=== PATIENT | female | born 1970 | race Caucasian/White ===

== ENCOUNTER → 2020-06-25 07:34 | Outpatient (CLI) | payer OTHER, SELFPAY ==
--- NOTE | ~2020-06-25 | XR_ITS ---
EXAMINATION: XR hip BI 2V w AP pelvis DATE: 06/25/2020 08:15 INDICATION: Rheumatoid arthritis involving multiple sites TECHNIQUE: AP view of the pelvis and two views of each hip were obtained. COMPARISON: None. FINDINGS: Bone alignment is normal. There is no fracture. No abnormal erosions are identified. There is mild osteoarthritis of the hips. Phleboliths are noted in the pelvis. The soft tissues are otherwi se unremarkable. IMPRESSION: 1. Mild osteoarthritis. Reviewed, dictated and finalized at location A. OL PRINCIPAL IMPRESSION: 1. Mild osteoarthritis.
--- NOTE | ~2020-06-25 | XR_ITS ---
EXAMINATION: XR chest 2V DATE: 06/25/2020 08:15 INDICATION: Rheumatoid arthritis TECHNIQUE: Frontal and lateral views of the chest are obtained COMPARISON: 11/21/2016 FINDINGS: The lungs are free of acute opacities. There is no pleural effusion or pneumothorax. The ca rdiomediastinal silhouette is normal. There is mild thoracic spondylosis. Surgical changes are noted in the lower cervical spine. IMPRESSION: 1. No acute cardiopulmonary abnormality. Reviewed, dictated and finalized at location A. T BOAT OPERATOR
--- NOTE | ~2020-06-25 | XR_ITS ---
XR knee RT 2V, XR knee LT 2V 06/25/2020 08:15 INDICATION: Knee pain PROCEDURE: 2 views each knee COMPARISON: No prior studies for comparison. FINDINGS: Fracture, dislocation or subluxation is not identified. No significant joint effusion. No j oint space narrowing. The soft tissues appear within normal limits. No foreign bodies are identified . IMPRESSION: 1: NO ACUTE BONE OR JOINT ABNORMALITY IDENTIFIED. Reviewed, dictated and finalized at location A. DATA HADOOP DEVELOPER IMPRESSION: 1: NO ACUTE BONE OR JOINT ABNORMALITY IDENTIFIED.
== END ==
PROVIDERS: PCP Family Medicine; Visit Provider Internal Medicine Rheumatology
DX: M05.79 Rheumatoid arthritis with rheumatoid factor of multiple sites without organ or systems involvement (principal); M25.559 Pain in unspecified hip; Z79.899 Other long term (current) drug therapy; M70.61 Trochanteric bursitis, right hip; M16.0 Bilateral primary osteoarthritis of hip
CPT/HCPCS: 71046; 73521; 73560

== ENCOUNTER 2021-03-27 19:42 | Emergency (ER) | payer OTHER, SELFPAY ==
--- NOTE | ~2021-03-27 | XR_ITS ---
EXAMINATION: XR foot RT min 3V DATE: 03/27/2021 21:25 INDICATION: Right foot injury and pain. TECHNIQUE: 4 views of right foot were obtained. COMPARISON: None. FINDINGS: Bone alignment is normal. There are chip fractures at first tarsometatarsal joint. Joint sp aces are normal. There are enthesophytes at the posterior and plantar aspects of calcaneal tuberosity . IMPRESSION: 1. Chip fractures at first tarsometatarsal joint. Reviewed, dictated and finalized at location A.
[2021-03-27 19:59] VITALS: BP 135/85; PULSE 84; RESP 16; TEMP 35.9; O2SAT 100
--- NOTE | 2021-03-27 21:12 | ED.LOWEXIN ---
HPI - Extremity Injury (Lower) General Chief Complaint: Extremity Injury, Lower Stated Complaint: Right foot injury Time Seen by Provider: 03/27/21 21:02 History of Present Illness HPI Narrative: Right foot injury while mowing the law about 3 hours ago. Unsure of the exact mechanism of injury. She fell and afterward she had pain in the right foot and was not able to bear weight. No additional injury. Related Data Home Medications Medication Instructions Recorded Confirmed etanercept 50 mg/mL (1 mL) 50 mg SUB-Q WEEKLY 04/17/20 06/19/20 subcutaneous syringe folic acid 1 mg tablet 2 mg PO DAILY tablet 04/17/20 06/19/20 hydroxychloroquine 200 mg tablet 200 mg PO DAILY 04/17/20 06/19/20 lamotrigine 100 mg tablet 100 mg PO BID 04/17/20 06/19/20 leflunomide 10 mg tablet 10 mg PO DAILY 04/17/20 06/19/20 methotrexate sodium 2.5 mg tablet 10 mg PO WEEKLY tablet 04/17/20 06/19/20 duloxetine 60 mg capsule,delayed 60 mg PO DAILY 12/18/20 release Allergies Allergy/AdvReac Type Severity Reaction Status Date / Time No Known Allergies Allergy Unverified 11/29/14 16:23 Review of Systems Review of Systems: All systems reviewed & are unremarkable except as noted in HPI and below Constitutional: Constitutional: Denies fever(s) and Denies weakness Cardiovascular: Cardiovascular: Denies chest pain Respiratory: Respiratory: Denies dyspnea Musculoskeletal: Musculoskeletal: Denies back pain Neurologic: Denies dizziness and Denies weakness PMFSH Past Medical History Medical History Chronic depression Migraine headache Nicotine vapor product user Rheumatoid arthritis of multiple sites without organ or system involvement with positive rheumatoid factor Sore throat Surgical History Surgical History History of neck surgery (~2018) Social History Social History Smoking status: Former smoker ( the patient smoked for 35 years and quit in 2019. She is vaping.) Tobacco type: e-cigarettes/vaping Second hand tobacco smoke exposure: No Alcohol intake: never Substance use: never Exam Const: General: healthy appearing, no acute distress and alert Orientation/consciousness: patient oriented x3 HENMT: Head: normal to inspection Resp: Effort & Inspection: normal respiratory effort Cardio: Other: 2+ right DP and PT Skin: General skin exam: normal color Wounds: no wounds Neuro: General: patient oriented x3 and moves all extremities Speech: normal speech Other: sensation intact Extrem: Other: minimal swelling to dorsum of right foot. Psych: Appearance: well kempt Mental Status: mental status grossly normal Affect: normal affect Course Vital Signs Vital signs: Vital Signs Temperature 35.9 C L 03/27/21 19:59 Pulse Rate 84 03/27/21 19:59 Respiratory Rate 16 03/27/21 19:59 Blood Pressure 135/85 03/27/21 19:59 Pulse Oximetry 100 03/27/21 19:59 Temperature 35.9 C L 03/27/21 19:59 Pulse Rate 84 03/27/21 19:59 Respiratory Rate 16 03/27/21 19:59 Blood Pressure 135/85 03/27/21 19:59 Pulse Oximetry 100 03/27/21 19:59 MDM - Extremity Injury (Lower) MDM Narrative Medical decision making narrative: Small chip fractures at tarsometatarsal joint. Differential Diagnosis Differential diagnosis: Likely other (foot sprain/fracture) Medical Records Attestation: I reviewed the patient's medical records. Imaging Data Radiologist's impression: ITS Impressions Foot X-Ray 03/27/21 21:32 IMPRESSION: 1. Chip fractures at first tarsometatarsal joint. Discharge Plan Discharge Clinical Impression: Fracture of metatarsal bone of right foot Qualifiers: Encounter type: initial encounter Metatarsal bone: first Fracture type: closed Fracture alignment: nondisplaced Qualified Code(s): S92.314A - Nondisp
[2021-03-27] MEDS: IBUPROFEN 600 MG TABLET PO (21:25)
[2021-03-27] MEDS: HYDROcodone/acetaminophen (*CRX) 5-325 MG TABLET 1 TAB PO (22:25)
[2021-03-27 22:50] VITALS: BP 130/89; PULSE 82; RESP 14; O2SAT 100
== END 2021-03-27 22:51 | disposition home or self-care (01) ==
PROVIDERS: Emergency Provider Emergency Medicine; PCP Family Medicine
DX: S92.314A Nondisplaced fracture of first metatarsal bone, right foot, initial encounter for closed fracture (principal); M06.9 Rheumatoid arthritis, unspecified; F17.290 Nicotine dependence, other tobacco product, uncomplicated; W18.30XA Fall on same level, unspecified, initial encounter
CPT/HCPCS: 73630; 99284; A9270

== ENCOUNTER 2021-04-02 14:36 | Outpatient (CLI) | payer OTHER, SELFPAY ==
--- NOTE | ~2021-04-02 | CT_ITS ---
EXAMINATION: CT foot RT wo con DATE: 04/02/2021 15:37 INDICATION: Fracture of unspecified metatarsal bone at the right foot with diffuse fluid swelling and bruising TECHNIQUE: High resolution computed tomography (CT) of the right foot was performed without intraveno us contrast. Additional sagittal and coronal reconstructions were performed. Automated exposure contr ol and iterative reconstruction technique were employed. The dose-length product was 405.46 mGy-cm. COMPARISON: Right foot radiographs dated 03/27/2021 FINDINGS: Nondisplaced intra-articular fracture involving the dorsal aspect of the distal aspect of the medial cuneiform. Comminuted intra-articular fracture at the base of the first metatarsal with tiny nondispl aced fractures along the dorsal and medial rim of the articular surface and with additional nondispla marianela oblique fracture extending across the palmar aspect of the base of the first metatarsal. Finally there is a minimally displaced intra-articular fracture of the involving the plantar aspect of the ba se of the fourth metatarsal. No other fractures identified. Joint spaces are relatively preserved. Mi ld soft tissue swelling over the dorsal aspect of the midfoot. Small Achilles calcaneal and moderate- sized plantar calcaneal spurs. IMPRESSION: 1. Non to minimally displaced intra-articular fractures involving the medial cuneiform and base of th e first and fourth metatarsals. Reviewed, dictated and finalized at location A. IMPRESSION: 1. Non to minimally displaced intra-articular fractures involving the medial cu neiform and base of the first and fourth metatarsals.
== END 2021-04-02 14:37 | disposition home or self-care (01) ==
LOC: ANHIMG 14:41
PROVIDERS: PCP Family Medicine; Visit Provider Orthopaedic Surgery
DX: S92.341A Displaced fracture of fourth metatarsal bone, right foot, initial encounter for closed fracture (principal); S92.351A Displaced fracture of fifth metatarsal bone, right foot, initial encounter for closed fracture
CPT/HCPCS: 73700

== ENCOUNTER 2021-06-30 16:00 | Outpatient (RCR) | payer OTHER, SELFPAY ==
--- NOTE | 2021-06-02 09:33 | PTOPEVAL ---
PHYSICAL THERAPY EVALUATION 06-02-21 Thank you for referring Daisha Escobar to [facility] [place] [facility] [place] She is scheduled to be seen for therapy? 1 x/week for 4 weeks. Please review, sign, date and return this plan of care RUSTY. I agree with and certify that the following plan of care is medically necessary. Referring Physician Date Attending Provider: Rodríguez Brewer MD *PT Outpatient Evaluation Start: 06/02/21 08:07 Outpatient Past Medical History Past Medical History Source of Past Medical History Patient Neurological History Hx Neurological Disorders No Significant History Cardiovascular History Hx Cardiac Disorders No Significant History Respiratory History Hx Respiratory Disorders No Significant History Gastrointestinal History Hx Gastrointestinal Disorders No Significant History Genitourinary History Hx Genitourinary Disorders No Significant History Musculoskeletal History Hx Arthritis Yes: RA- feet,wrists, hands; Hx Orthopedic Surgery Yes: cervical discectomy & fusion Hematological History Hx Hematological Disorders No Significant History Endocrine History Hx Endocrine Disorders No Significant History HEENT History Hx HEENT Disorders No Significant History Evaluation Information Problem Diagnosis R metatarsal fracture Onset March 31, 2021 Subjective Information injury to her foot when Query Text:As Reported By Patient/ working in the yard and trying Family to break a branch by pushing it with her foot, fell and twisted her foot backwards; non surgical foot fracture R foot non displaced, immobilized with walking/cast shoe; for one week, no pressure/ WB, used walker/scooter for about 1 month; then crutches and now cane; intermittent use of cane for past 2-3 weeks Prior Level of Function Activity Level (Last 3 Months) 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
--- NOTE | 2021-06-30 16:17 | PTOPEVAL ---
PHYSICAL THERAPY DISCHARGE REPORT 06-30-21 Refer to the clinical summary below, for her status today, compared to the initial evaluation. Thank you for referring Daisha Escobar to [facility] Please review, sign, date and return Discharge report RUSTY. I agree with and certify that the following plan of care is medically necessary. Referring Physician Date Attending Provider: Rodríguez Brewer MD Document 06/30/21 15:55 AIDE (Rec: 06/30/21 16:17 AIDE [id number]) Assessment Status Discharge Subjective Information Connie reports: therapy has Query Text:As Reported By Patient/ been good, exercises helped; Family have a good pair of shoes; Pain Assessment Timing of Pain Assessment Timing of Pain Assessment Assessment Pain Scale Pain Scale Used Numeric (1 - 10) Self Report Pain Assessment Right Foot/Feet Reported Pain Level 3 Pain Description Soreness,Tender on Palpation Pain Frequency Chronic,Continuous Other Pain Description ball of foot; top of foot sometimes feels hot Lowest Pain Intensity 2 Greatest Pain Intensity 5 Other Pain Aggravating Factors at end of day- walking on concrete all day at work; Pain Score Pain Score 3: Self Report Interventions Used Interventions Used By Clinicians Education Pain Relief Interventions Used By Ice,Inactivity/Rest Patient Other Alleviating Interventions have not needed ice lately; in shoe supports and good supportive shoes Lower Extremity Muscle Strength Testing General Lower Extremity Strength Gross Lower Extremity Strength functional strength, with shoe on: R ankle: -single leg standing 32 seconds - single leg PF x 10 reps, unsteady with last few reps -with heel on ground: DF ankle x 30 reps - with foot flat on ground, toe extension x 30 reps Gait Assessment Gait Assessment Additional Ambulation Comments ambulated indep without assistive device and good gait pattern and speed; Rehab Teaching Rehab Teaching Teaching Topic Rehab Teaching Topic Components Home Program As Pertains To Plan of Care Discussion Recipient Patient Learning Preferences Audio,Discussion,One-on-One Instruction,Written Barriers to Learning None Readiness
== END 2021-07-01 11:50 | disposition home or self-care (01) ==
LOC: ANHPT 16:00
PROVIDERS: PCP Family Medicine; Visit Provider Orthopaedic Surgery
DX: S92.301D Fracture of unspecified metatarsal bone(s), right foot, subsequent encounter for fracture with routine healing (principal)
CPT/HCPCS: 97110; 97140; 97161

== ENCOUNTER 2022-06-10 09:47 | Emergency (ER) | payer OTHER, SELFPAY ==
[2022-06-10 10:01] VITALS: BP 133/88; PULSE 93; RESP 16; TEMP 37.4; O2SAT 100
--- NOTE | 2022-06-10 10:06 | ED.URI ---
HPI - URI/Sore Throat General Chief Complaint: Upper Respiratory Infection Stated Complaint: sore throat, congestion, rt ear pain Time Seen by Provider: 06/10/22 10:06 Source: patient and RN notes reviewed Mode of arrival: ambulatory Limitations: no limitations History of Present Illness HPI Narrative: 51-year-old female presenting for complaint of right ear pain, sinus congestion, hoarse voice for 4 days. Fever at onset. She is taking Mucinex for symptoms. She denies tinnitus, dizziness, shortness of breath, wheezing, nausea, vomiting, diarrhea, fevers or chills. Related Data Home Medications Medication Instructions Recorded Confirmed etanercept 50 mg/mL (1 mL) 50 mg subcut WEEKLY 04/17/20 06/10/22 subcutaneous syringe (Enbrel) folic acid 1 mg tablet 2 mg PO DAILY 04/17/20 06/10/22 hydroxychloroquine 200 mg tablet 200 mg PO DAILY 04/17/20 06/10/22 lamotrigine 100 mg tablet 100 mg PO BID 04/17/20 06/10/22 leflunomide 10 mg tablet 10 mg PO DAILY 04/17/20 06/10/22 methotrexate sodium 2.5 mg tablet 10 mg PO WEEKLY 04/17/20 06/10/22 duloxetine 60 mg capsule,delayed 60 mg PO DAILY 12/18/20 06/10/22 release Allergies Allergy/AdvReac Type Severity Reaction Status Date / Time No Known Allergies Allergy Verified 06/10/22 10:06 Review of Systems Review of Systems: CONSTITUTIONAL: Denies malaise, chills, sweats, fever EYES: Denies visual changes, redness, or discharge ENT: Reports rhinorrhea, congestion,otalgia CARDIOVASCULAR: Denies chest pain, palpitations, edema RESPIRATORY: Reports cough, post nasal drainage. Denies dyspnea GASTROINTESTINAL: Denies abdominal pain, nausea, vomiting, diarrhea SKIN: Denies rash or itching MUSCULOSKELETAL: Denies myalgia NEUROLOGIC: Denies headache PMFSH Past Medical History Medical History Chronic depression Fracture of metatarsal of right foot, closed first, third and fourth bases - nondisplaced Fracture of tarsal bone of right foot medial cuneiform Migraine headache Nicotine vapor product user Rheumatoid arthritis of multiple sites without organ or system involvement with positive rheumatoid factor Sore throat Surgical History Surgical History History of neck surgery (~2018) Social History Social History Smoking status: Former smoker ( the patient smoked for 35 years and quit in 2019. She is vaping.) Tobacco type: e-cigarettes/vaping Second hand tobacco smoke exposure: No Alcohol intake: never Substance use: never Additional occupation/education comments: [employer], teacher Gender identity (if verbalized by the patient): Female Exam Narrative: GENERAL: Ill-appearing, nontoxic EYES: PERRLA, conjunctivae clear ENT: Mucous membranes moist. Right TM red and bulging, tender and red canal; Left TM pearly ross with normal light reflex; no tragal tenderness. Hoarse voice. Oropharynx erythematous without lesions or exudate. CHEST: Clear to auscultation, breath sounds equal. HEART: Regular rate and rhythm. No murmur heard. SKIN: Warm, dry, no rash. NEURO: Alert and oriented x3. PSYCH: Normal mood and affect Course Course Emergency Course: Patient is aware of diagnosis, understands and agrees to treatment plan. Anticipatory guidance given. Patient agrees to follow-up as directed and is aware of reasons to seek care at the emergency department. Portions of this record may have been created with voice recognition software Level of Care: Express Care Visit Vital Signs Vital signs: Vital Signs Temperature 99.3 F 06/10/22 10:01 Pulse Rate 93 06/10/22 10:01 Respiratory Rate 16 06/10/22 10:01 Blood Pressure 133/88 06/10/22 10:01 Pulse Oximetry 100 06/10/22 10:01 Temperature 99.3 F 06/10/22 10:01 Pulse Rate 93 06/10/22 10:01 Respiratory Rate 16 05/23
== END 2022-06-10 10:15 | disposition home or self-care (01) ==
PROVIDERS: Emergency Provider Nurse Practitioner Family; PCP Family Medicine
DX: H66.001 Acute suppurative otitis media without spontaneous rupture of ear drum, right ear (principal); F17.290 Nicotine dependence, other tobacco product, uncomplicated; M05.9 Rheumatoid arthritis with rheumatoid factor, unspecified; F32.A Depression, unspecified
CPT/HCPCS: 99213; G0463

== ENCOUNTER → 2022-08-21 09:43 | Outpatient (CLI) | payer OTHER, SELFPAY ==
--- NOTE | ~2022-08-21 | XR_ITS ---
EXAMINATION: XR chest 2V DATE: 08/21/2022 09:58 INDICATION: Rheumatoid arthritis TECHNIQUE: AP and lateral views of the chest are obtained. COMPARISON: 06/25/2020 FINDINGS: The lungs are free of acute opacities. No pleural effusion or pneumothorax. The cardiomedia stinal silhouette is normal. There is moderate thoracic spondylosis. There are changes of anterior fu nory at the cervicothoracic junction. IMPRESSION: 1. No acute cardiopulmonary abnormality. Reviewed, dictated and finalized at location B. DYEING MACHINE OPERATOR
== END ==
PROVIDERS: PCP Family Medicine; Visit Provider Internal Medicine Rheumatology
DX: M05.79 Rheumatoid arthritis with rheumatoid factor of multiple sites without organ or systems involvement (principal); Z79.899 Other long term (current) drug therapy; Z11.1 Encounter for screening for respiratory tuberculosis; Z51.81 Encounter for therapeutic drug level monitoring
CPT/HCPCS: 71046

== ENCOUNTER → 2023-05-21 14:03 | Outpatient (CLI) | payer OTHER, SELFPAY ==
--- NOTE | ~2023-05-21 | XR_ITS ---
EXAMINATION: XR foot RT min 3V DATE: 05/21/2023 14:16 INDICATION: Right foot pain, palpable lump near the first tarsometatarsal joint TECHNIQUE: Dorsoplantar, lateral, and 2 oblique views of the right foot were obtained. COMPARISON: 03/27/2021 FINDINGS: There is a chronic healed fracture at the first tarsometatarsal joint. No acute fracture is identified. There is mild osteoarthritis of multiple interphalangeal joints. The soft tissues are un remarkable. Posterior and plantar calcaneal enthesophytes are noted. IMPRESSION: 1. No acute osseous abnormality. Reviewed, dictated and finalized at location F.
== END ==
PROVIDERS: PCP Family Medicine; Visit Provider Nurse Practitioner Family
DX: M79.671 Pain in right foot (principal); R22.41 Localized swelling, mass and lump, right lower limb
CPT/HCPCS: 73630

== ENCOUNTER 2023-11-09 12:07 | Outpatient (CLI) | payer OTHER, SELFPAY ==
--- NOTE | ~2023-11-09 | XR_ITS ---
Right Hand Technique: PA and lateral views were obtained. Clinical History: Rheumatoid arthritis Findings: No acute fracture or dislocation is seen. Osseous alignment is anatomic. Joint spaces are p reserved. Soft tissues are unremarkable. Impression: Unremarkable right hand. Reviewed, dictated and finalized at location M. Impression: Unremarkable right hand.
--- NOTE | ~2023-11-09 | XR_ITS ---
XR foot RT 2V DATE: 11/09/2023 13:38 INDICATION: Rheumatoid arthritis TECHNIQUE: AP and lateral views COMPARISON: 05/21/2023 right foot FINDINGS: Mild plantar and posterior calcaneal enthesopathy. No associated erosive change or periosti tis. No fracture or dislocation, periosteal reaction or bone destruction or erosive change is noted. IMPRESSION: Mild plantar and posterior calcaneal enthesopathy Reviewed, dictated and finalized at location L.
--- NOTE | ~2023-11-09 | XR_ITS ---
Clinical Indication: Rheumatoid arthritis PA and lateral views of the chest: Comparison: 08/21/2022 Findings: The lungs are clear, without evidence of focal consolidation or pleural effusion. Cardiome diastinal silhouette is within normal limits. Bones and soft tissues are unremarkable. Impression: Normal chest. Reviewed, dictated and finalized at location . Impression: Normal chest.
--- NOTE | ~2023-11-09 | XR_ITS ---
Left Hand Technique: PA and lateral views were obtained. Clinical History: Rheumatoid arthritis Findings: No acute fracture or dislocation is seen. Osseous alignment is anatomic. Joint spaces are p reserved. Soft tissues are unremarkable. Impression: Unremarkable left hand. Reviewed, dictated and finalized at location M. Impression: Unremarkable left hand.
--- NOTE | ~2023-11-09 | XR_ITS ---
Left Shoulder Technique: AP and scapular Y views were obtained. Clinical History: Rheumatoid arthritis Findings: No fracture or dislocation is seen. Osseous alignment is anatomic. The glenohumeral and acr omioclavicular joint spaces are preserved. Soft tissues are unremarkable. Impression: Unremarkable left shoulder radiographs. Reviewed, dictated and finalized at location . Impression: Unremarkable left shoulder radiographs.
== END 2023-11-09 12:08 ==
PROVIDERS: PCP Family Medicine; Visit Provider Internal Medicine Rheumatology
DX: M77.31 Calcaneal spur, right foot (principal); M05.79 Rheumatoid arthritis with rheumatoid factor of multiple sites without organ or systems involvement; Z79.899 Other long term (current) drug therapy; Z51.81 Encounter for therapeutic drug level monitoring
CPT/HCPCS: 71046; 73030; 73120; 73620

== ENCOUNTER 2024-01-28 01:08 | Day surgery (SDC) | payer OTHER, SELFPAY ==
[2024-01-19 16:10] VITALS: BMI 26.7
--- NOTE | 2024-01-19 16:49 | PC.NURSE ---
Report to the Outpatient Waiting Room, entrance under the green pavilion located off [facility], at 0600 on 01-28-24. Planned Procedure Time: 0730. Time changes happen often and if your time is changed the preop area will call you the afternoon before. - You and your visitor will be asked to self-screen and do not enter if you have any COVID symptoms. - A mask is optional within the hospital at this time. Patients may have clear liquids (water, carbonated beverages, clear teas, apple juice) until 3 hours prior to surgery with a maximum of 20 ounces. 0430 - No food from midnight until time of surgery - Infants may have breast milk until 4 hours before surgery, formula 6 hours prior to surgery. - Children will be allowed to drink immediately following surgery. If applicable, please bring a bottle or sippy cup to assist with drinking. Juice, water, soda, and popsicles are readily available. For infants on formula, please bring formula the day of surgery. Pacifiers are allowed. Take the following medications with a SIP of water the morning of surgery: duloxetine, lamotrigine DO NOT STOP ANY OF YOUR OTHER PRESCRIPTION MEDICATIONS PRIOR TO SURGERY ?EXCEPT THE FOLLOWING Medications to discontinue per physician: vitamins and supplements Date to take last dose: 01-25-24 Please no make-up, nail arabic, hairspray, perfume, deodorant, or body powder the day of surgery. No jewelry (including any body piercings) or valuables the day of surgery, leave them at home. Please take a shower or bath the night before, or the morning of, surgery with an antibacterial soap. Wear comfortable, loose fitting clothing. Children are encouraged to wear pajamas. - Jewelry must be removed prior to entering the operating room. Rings and piercings that are not removed may be cut off. - The hospital will not accept responsibility for valuables. - Please leave all valuables, including medications, at home the day of surgery. If you are going home after surgery, a licensed tractor trailer moving van driver must drive you home. - NO public transportation without another adult if you receive anesthesia. - We recommend that an adult stay with you for 24 hours following discharge. - We also recommend that you do not drive, make important decision, drink alcoholic beverages, or take any drugs that were not prescribed by your health care provider for at least 24 hours after your discharge time. For Pediatric surgeries, we recommend two adults accompany the child home. Follow any additional instructions given to you from your surgeon. If you or anyone in your household have experienced Covid symptoms in the past week, please notify your surgeon or the nurse liaison at the phone number below for possible testing. Telephone instructions given to Connie Escobar and asked if any additional questions and then verbalized understanding. Patient advised to call surgeon office or pre surgery nurse liaison [phone] if any additional questions.
[2024-01-28] VITALS (9 sets, daily range): BP systolic 136–163; BP diastolic 73–92; PULSE 65–81; RESP 12–17; TEMP 36.1–36.7; O2SAT 96–100
--- NOTE | ~2024-01-28 | XR_ITS ---
EXAMINATION: XR surgery orthopedic DATE: 01/28/2024 08:18 INDICATION: Right foot arthritis. TECHNIQUE: 2 intraoperative fluoroscopic views of right foot were obtained. I was not present. Fluoro scopy exposure time was 7 seconds. COMPARISON: Right foot radiographs 11/09/2023 FINDINGS: There are changes of arthrodesis procedure of first tarsometatarsal joint with a staple. IMPRESSION: 1. Arthrodesis of first tarsometatarsal joint. Reviewed, dictated and finalized at location A.
--- NOTE | 2024-01-28 07:10 | WPDHPUPDATE1 ---
History and Physical Update Update Date/Time: 01/28/24 07:10 History and Physical has been reviewed, including an updated exam of the patient. There are NO changes in the patient's condition. Risks, benefits, and alternatives have been discussed and questions answered. Patient agrees to proceed with procedure.
--- NOTE | 2024-01-28 07:19 | WPDANESEPPF ---
Anes - Initial Pre Proc Eval Procedure: Operation Date: 01/28/24 07:30 Proposed Procedures p Arthrodesis of First Metatarsal Cuneiform Joint Right Foot - Bebeto Cash Jr., DPM Date/Time: 01/28/24 07:19 Surgeon: Bebeto Cash Jr., DPM Pre Op Diagnosis: Arthritis Rt Foot Patient Data Age: 53 Gender: F Height: 1.63 m Weight: 70.1 kg Last Vital Signs Temp 36.7 C 01/28/24 06:09 Pulse 80 01/28/24 06:09 Resp 16 01/28/24 06:09 BP 142/89 H 01/28/24 06:09 Pulse Ox 100 01/28/24 06:09 O2 Del Method Room Air 01/28/24 06:09 Allergies Allergy/AdvReac Type Severity Reaction Status Date / Time No Known Allergies Allergy Verified 01/28/24 06:14 Home Medications Medication Instructions Recorded Confirmed Type etanercept 50 mg/mL (1 mL) 50 mg subcut WEEKLY 04/17/20 01/28/24 History subcutaneous syringe (Enbrel) folic acid 1 mg tablet 2 mg PO DAILY 04/17/20 01/28/24 History lamotrigine 100 mg tablet 100 mg PO BID 04/17/20 01/28/24 History leflunomide 10 mg tablet 10 mg PO DAILY 04/17/20 01/28/24 History methotrexate sodium 2.5 mg tablet 10 mg PO WEEKLY 04/17/20 01/28/24 History duloxetine 60 mg capsule,delayed 60 mg PO DAILY 12/18/20 01/28/24 History release valacyclovir 1 gram tablet 1,000 mg PO .COMPLEX PRN cold sores 01/19/24 01/28/24 History (Valtrex) Patient hx anesthesia problems: none Family hx anesthesia problems: none Results Review: All pre-operative results and documents have been reviewed as part of the pre-operative evaluation. [facility] Past Medical History Medical History BMI 28.0-28.9,adult Breast cancer screening by mammogram Bullous myringitis of right ear Chronic depression Colon cancer screening COVID (07/14/22) De Quervain's disease (tenosynovitis) (~08/2023) left wrist. X-ray of the left hand on 10/30/2023 reveals no bony defect of the distal radius or ulna. Fever blister (~09/14/22) Fracture of metatarsal of right foot, closed first, third and fourth bases - nondisplaced Fracture of tarsal bone of right foot medial cuneiform Low back pain Mass of right foot Migraine headache Nicotine vapor product user Overweight (BMI 25.0-29.9) Pharyngitis Rheumatoid arthritis of multiple sites without organ or system involvement with positive rheumatoid factor Right foot pain Sore throat Surgical History Surgical History History of neck surgery (~2018) Social History Social History Smoking packs per day: 0.5 Smoking cigarettes per day: 10.0 Years smoked: 35 Smoking pack-years: 17.50 Smoking status: Former smoker Tobacco type: cigarettes and e-cigarettes/vaping Second hand tobacco smoke exposure: No Smoking end date: 08/23/20 Additional smoking assessment comments: still vapes daily with nicotine Alcohol intake: current Alcohol use details: socially Substance use: never Substance use type: does not use Do You Feel Safe in your Home?: Yes Lack of Transportation: No Lack of Food: Sometimes True Current Housing: I Have Housing Concerned About Future Housing: No Difficulty Paying Gas/Electric Bills: No Difficulty Paying for Meds: No Currently Unemployed: No Education: Master's Degree or Higher Difficulty w/ Childcare or Family Care: No Living arrangements: alone Occupation/Education: occupation Additional occupation/education comments: [employer], teacher Gender identity (if verbalized by the patient): Female Spiritual care concerns: No Anes - Eval Final PreProcedure Day of Procedure 01/28/24 07:19 Patient weight: overweight Heart: regular rate and rhythm Lungs: clear to auscultation Airway: Mallampati scale class II Neurological: alert and oriented Last oral intake: >/= 8 hours ASA classification: III Emergent: n
[2024-01-28] MEDS: LACTATED RINGERS 1,000 ML 30 ML IV CONT ×2 (07:26→08:54)
[2024-01-28] MEDS: ceFAZolin 2 GM/D5W 50 ML 2 GM/50 ML BAG IVPB (07:28)
[2024-01-28] MEDS: BUPivacaine HCL 0.5% 10 ML AMP INFILTRATE (07:52)
[2024-01-28] MEDS: LIDOCAINE HCL 2% LOCAL INJ 20 ML VIAL 10 ML INFILTRATE (07:52)
--- NOTE | 2024-01-28 08:37 | W.PM.PROC2 ---
Procedure Note - Detailed Date of Procedure 01/28/24 Pre-op Diagnosis Arthritis Right Foot First Metatarsal Cuneiform Joint Post-op Diagnosis Same Procedure Performed Arthrodesis of the first metatarsal cuneiform joint right foot Surgeon Bebeto Cash Jr., DPM Anesthesia General and Local Indications Painful 1st metatarsal cuneiform joint right foot with a large osteophyte Findings Large dorsal osteophyte with loss of joint space to the first metatarsal cuneiform joint right foot Description of Procedure Procedure in detail: Under mild sedation the Patient was brought into the operating room and placed on the operating table in the supine position. pneumatic ankle tourniquet was placed about the patient's right ankle. Following general anesthesia I performed a common peroneal nerve block along with an ankle ring block utilizing 20cc of 2% Lidocaine plain and 0.5% Marcaine plain. An Esmarch bandage is not used to exsanguinate the patient's right foot and ankle and a pneumatic ankle tourniquet was inflated to 250 mmHg. Attention was directed to the dorsal aspect of the right foot dorsal to the first metatarsal cuneiform joint where a large osteophyte was noted. The linear incision was made starting along the distal medial cuneiform and exteding to the central shaft of the first metatarsal. The incision was made medial to the Extensor hallucis Longus tendon. All bleeders were ligated and cauterized as necessary. The dorsal medial aspect of the first metatarsal cuneiform joint was incised and soft tissue retracted medially and laterally. I used two 2mm Steinmann pins to drill proximal and distal to the joint, then a joint distractor was used to open the joint and allow visualization. Osteophytes were resected with a sagittal saw blade and rongeur. There was loss and denudation of the cartilage already noticed, this was consistent with arthrosis of the joint. I used a curette and cartilage debridement tool provided in the [facility] joint preperation kit to remove the degenerative cartilage. Next, I drilled the subchondral bone with a 2.0mm drill bit. I flushed the cartilage and subchondral bone from the operative site with copius amount of sterile saline. I further fenestrated the joint with a small osteotome and mallet. Next, I implanted an Arthrex 15mm by 18mm MX staple utilizing standard principles and techniques to fixate the fusion site Excellent compression was noted along with positioning with live fluroscopy. I flushed the wound with sterile saline and repaired the capsule with 3-0 Vicryl with a simple interrupted suture technique. Next, I used 4.0 Vicryl to reapproximate the subcutaneus layer and 4.0 Monocryl in running subcuticular fashion technique to close the skin. Upon completion of the procedure I dressed the incision with 1/4 inch steri strips, Adaptic, 4x4 Gauze, 4 inch Kerlix and Coban. I deflated the ankle tourniquet and there was an immediate capillary refill noted to all digits of the foot. No bleeding was noticed through the dressing. I applied a posterior splint with the foot held 90 degrees to the leg. The patient did very well with the procedure and the anesthesia. The patient was transferred to the recovery room with vital signs stable and vascular status intact to all toes of the foot. Following a period of postoperative monitoring, the patient will be discharged home on the following written and oral postoperative instructions: 1. The patient should keep the dressing clean, dry, and intact. Use a cast protector bag with showers. 2. The patient will be strictly nonweightbearing with a knee scooter. 3. Patient should ice and elevate the right foot when at rest. 4. The patient is to contact Dr. Cash for all postop care and if any problems arise. 5. Prescriptions were written for Percocet 5/325 dispensed 40 to be taken 1 p.o. q.4-6 hours as needed for severe pain. Furthermore, Xarelto 10 mg was also prescribed to be taken
[2024-01-28] MEDS: fentaNYL CITRATE INJ (*CRX) 100 MCG/2 ML VIAL 25 MCG IV PUSH ×4 (08:56→09:16)
[2024-01-28] MEDS: oxyCODONE HCL (*CRX) 5 MG TAB IR PO (09:47)
== END 2024-01-28 10:50 | disposition home or self-care (01) ==
PROVIDERS: PCP Family Medicine; Visit Provider Podiatrist Foot & Ankle Surgery
PROC: (CPT 28750; principal; 2024-01-28 07:30)
DX: M19.071 Primary osteoarthritis, right ankle and foot (principal); M05.79 Rheumatoid arthritis with rheumatoid factor of multiple sites without organ or systems involvement; F32.A Depression, unspecified; F17.290 Nicotine dependence, other tobacco product, uncomplicated
CPT/HCPCS: 28740; 99199; A9270; J0690; J1100; J2250; J2405; J2704; J3010; J7120

== ENCOUNTER 2024-10-18 11:34 | Outpatient (CLI) | payer OTHER, SELFPAY ==
--- NOTE | ~2024-10-18 | XR_ITS ---
EXAMINATION: XR shoulder RT min 2V DATE: 10/18/2024 11:46 INDICATION: Right shoulder pain. TECHNIQUE: 4 views of right shoulder were obtained. COMPARISON: None. FINDINGS: Alignment is normal. No fracture. There is mild osteoarthritis of glenohumeral joint and mo derate osteoarthritis of acromioclavicular joint. There are changes of anterior fusion procedure in c ervical spine. IMPRESSION: 1. Polyarticular osteoarthritis. Reviewed, dictated and finalized at location A. HOUSE ENGINEER
== END 2024-10-18 11:35 | disposition home or self-care (01) ==
LOC: MICIMG 11:35
PROVIDERS: PCP Family Medicine; Visit Provider Family Medicine
DX: M19.011 Primary osteoarthritis, right shoulder (principal); G89.29 Other chronic pain
CPT/HCPCS: 73030

== ENCOUNTER 2025-01-25 14:19 | Outpatient (CLI) | payer OTHER, SELFPAY ==
--- NOTE | ~2025-01-25 | MR_ITS ---
MRI of the right shoulder Technique: Axial proton-density fat-sat images, coronal proton density fat-sat and T2 fat-sat images, and sagittal T1-weighted and T2 fat-sat images were acquired. Clinical History: Bicipital tendinitis Findings: There is mild AC joint degenerative change., Coracoclavicular and coracohumeral ligaments a ppear intact. Possible tear of the coracoacromial ligament. There is full-thickness tearing of the anterior aspect of the distal supraspinatus tendon, with the a miugel angel of tear measuring 1.7 x 1.7 cm in extent. There is moderate infraspinatus tendinosis. Subscapular is tendon is intact with moderate to severe tendinosis. Tendon of long head of the biceps is intact. No definite labral tear seen. Inferior glenohumeral ligament is intact. There is glenohumeral joint effusion, with fluid passing th rough the rotator cuff defect into the subacromial/subdeltoid bursa. No degenerative change of the gl enohumeral joint. No muscle atrophy or edema. Impression: Full-thickness tear of the anterior and mid portions of the distal supraspinatus tendon, as detailed above. Background rotator cuff tendinosis. Suspected tear of the coracoacromial ligament. Glenohumeral joint effusion with fluid passing through the rotator cuff defect into the subacromial/s ubdeltoid bursa. Reviewed, dictated and finalized at [facility]. Impression: Full-thickness tear of the anterior and mid portions of the distal supraspinatu s tendon, as detailed above. Background rotator cuff tendinosis. Suspected tear of the coracoacromial ligament. Glenohumeral joint effusion with fluid passing through the rotator cuff defect into the subacromial/subdeltoid bursa.
== END 2025-01-25 14:20 | disposition home or self-care (01) ==
LOC: MICIMG 14:20
PROVIDERS: PCP Family Medicine; Visit Provider Orthopaedic Surgery
DX: M75.81 Other shoulder lesions, right shoulder (principal); M75.21 Bicipital tendinitis, right shoulder; M75.121 Complete rotator cuff tear or rupture of right shoulder, not specified as traumatic; M75.31 Calcific tendinitis of right shoulder; M25.411 Effusion, right shoulder
CPT/HCPCS: 73221

== ENCOUNTER 2025-02-26 00:45 | Day surgery (SDC) | payer OTHER, SELFPAY ==
[2025-02-19 16:04] VITALS: BMI 25.3
--- NOTE | 2025-02-19 16:06 | PC.NURSE ---
Report to the Outpatient Waiting Room, entrance under the green pavilion located off [facility], at time _0730_ on date _[id number]_. Planned Procedure Time: _0930_.? Time changes happen often and if your time is changed the preop area will call you the afternoon before. - You and your visitor will be asked to self-screen and do not enter if you have any COVID symptoms. Please call surgeon if you need to reschedule. - A mask is optional within the hospital at this time. Patients may have clear liquids (water, carbonated beverages, clear teas, apple juice) until 3 hours prior to surgery with a maximum of 20 ounces. - No food from midnight until time of surgery and no smoking, or chewing tobacco (or any form of nicotine). No chewing gum, candy or mints. Take only the following medications with a SIP of water on the morning of surgery: ___Lamotrigine, Duloxetine, and Bupropion____ DO NOT STOP ANY OF YOUR OTHER PRESCRIPTION MEDICATIONS PRIOR TO SURGERY EXCEPT THE FOLLOWING Hold all vitamins and supplements for 3 days per anesthesiologist. Medications to discontinue per physician ____Per patient's Rheumatologists instructions she is stopping Leflonomide, Methotrexate and Embro 1 week before surgery. ____ Date to take last dose Please no make-up, nail [place], hairspray, perfume, deodorant, or body powder the day of surgery.? No jewelry (including any body piercings) or valuables the day of surgery, leave them at home.? Please take a shower or bath the night before, or the morning of, surgery with an antibacterial soap.? Wear comfortable, loose fitting clothing.? - Jewelry must be removed prior to entering the operating room.? Rings and piercings that are not removed may be cut off. - The hospital will not accept responsibility for valuables.? - Please leave all valuables, including medications, at home the day of surgery. If you are going home after surgery, a licensed street flusher driver must drive you home.? - NO public transportation without another adult if you receive anesthesia. - We recommend that an adult stay with you for 24 hours following discharge. - We also recommend that you do not drive, make important decision, drink alcoholic beverages, or take any drugs that were not prescribed by your health care provider for at least 24 hours after your discharge time. Follow any additional instructions given to you from your surgeon. Telephone instructions given to __Connie___and asked if any additional questions and then verbalized understanding. Patient advised to call surgeon office or pre surgery nurse liaison [phone] if any additional questions.
--- NOTE | 2025-02-22 07:25 | PM.IMHP ---
H&P: HPI History of Present Illness Date/Time: 02/22/25 07:25 Chief Complaint: His shoulder pain and weakness right shoulder. She has had extensive physical therapy unfortunately the pain weakness persist. Based on the MRI scan she has a rotator cuff tear she would like to consider surgical intervention of the right shoulder. Review of Systems Musculoskeletal: Musculoskeletal: Reports arthralgias, Reports joint swelling and Reports stiffness PMFSH Past Medical History Medical History Hypersomnia Chronic low back pain with right-sided sciatica COVID (07/14/22) BMI 24.0-24.9, adult Chronic pain in right shoulder 10/18/2024 X-ray of the right shoulder reveals moderate osteoarthritis. Herpes zoster De Quervain's disease (tenosynovitis) (~08/2023) left wrist. X-ray of the left hand on 10/30/2023 reveals no bony defect of the distal radius or ulna. Breast cancer screening by mammogram Colon cancer screening Cologuard screening was negative on 11/27/2023 with recheck in 3 years. Low back pain Mass of right foot Right foot pain Pharyngitis Fever blister (~09/14/22) BMI 28.0-28.9,adult Overweight (BMI 25.0-29.9) Bullous myringitis of right ear Fracture of tarsal bone of right foot medial cuneiform Fracture of metatarsal of right foot, closed first, third and fourth bases - nondisplaced Rheumatoid arthritis of multiple sites without organ or system involvement with positive rheumatoid factor CRP 1, ESR 22, WBC 6.4, creatinine 0.74 on 01/19/2025. Nicotine vapor product user Migraine headache Chronic depression Sore throat Surgical History Surgical History History of neck surgery (~2018) Social History Social History Smoking packs per day: 0.5 Smoking cigarettes per day: 10.0 Years smoked: 35 Smoking pack-years: 17.50 Smoking status: Current every day smoker Tobacco type: cigarettes and e-cigarettes/vaping Second hand tobacco smoke exposure: No Smoking end date: 02/19/21 Additional smoking assessment comments: still vapes daily with nicotine Alcohol intake: former Alcohol use details: socially Substance use: never Substance use type: does not use Current Housing: Decline to Answer Concerned About Future Housing: Decline to Answer Difficulty Paying Gas/Electric Bills: Decline to Answer Difficulty Paying for Meds: Decline to Answer Currently Unemployed: Decline to Answer Education: Decline to Answer Difficulty w/ Childcare or Family Care: Decline to Answer Living arrangements: with family Occupation/Education: occupation Additional occupation/education comments: [employer], teacher Gender identity (if verbalized by the patient): Female Spiritual care concerns: No Meds Home Medications and Allergies Home Medications ?Medication ?Instructions ?Recorded ?Confirmed ?Type etanercept 50 mg/mL (1 mL) 50 mg subcut WEEKLY 04/17/20 02/19/25 History subcutaneous syringe (Enbrel) folic acid 1 mg tablet 2 mg PO DAILY 04/17/20 02/19/25 History lamotrigine 100 mg tablet 100 mg PO BID 04/17/20 02/19/25 History leflunomide 10 mg tablet 10 mg PO DAILY 04/17/20 02/19/25 History methotrexate sodium 2.5 mg tablet 10 mg PO WEEKLY 04/17/20 02/19/25 History duloxetine 60 mg capsule,delayed 60 mg PO DAILY 12/18/20 02/19/25 History release valacyclovir 1 gram tablet See Rx Instructions PO .COMPLEX 06/12/24 02/19/25 Rx (Valtrex) PRN cold sores #30 tabs tramadol 50 mg tablet 50 mg PO Q6H PRN pain #120 tabs 01/22/25 02/19/25 Rx bupropion HCl 150 mg 24 hr tablet, 150 mg PO DAILY 02/19/25 02/19/25 History extended release Allergies Allergy/AdvReac Type Severity Reaction Status Date / Time diclofenac AdvReac Intermediate Nausea Verified 02/19/25 15:55 Exam Narrative: On exam she is weak in abduction external rotation on the right shoulder. She has marked impingement pain with overhead motion. Neurologically she appears to be grossly intact. Eyes: General: appearance normal, both eyes and all related structures Neck: Neck: supple Resp: Effort & Inspection: normal respiratory effort Cardio: Rate: regular rate Rhythm: regular rhythm Radiology Reports: Comments: Magnetic Resonance Report Signed Patient: Daisha Escobar MRI of the right shoulder Technique: Axial proton-density fat-sat images, coronal proton density fat-sat and T2 fat-sat images, and sagittal T1-weighted and T2 fat-sat images were acquired. Clinical History: Bicipital tendinitis Findings: There is mild AC joint degenerative change., Coracoclavicular and coracohumeral ligaments appear intact. Possible tear of the coracoacromial ligament. There is full-thickness tearing of the anterior aspect of the distal supraspinatus tendon, with the area of tear measuring 1.7 x 1.7 cm in extent. There is moderate infraspinatus tendinosis. Subscapularis tendon is intact with moderate to severe tendinosis. Tendon of long head of the biceps is intact. No definite labral tear seen. Inferior glenohumeral ligament is intact. There is glenohumeral joint effusion, with fluid passing through the rotator cuff defect into the subacromial/subdeltoid bursa. No degenerative change of the glenohumeral joint. No muscle atrophy or edema. Impression: Full-thickness tear of the anterior and mid portions of the distal supraspinatus tendon, as detailed above. Background rotator cuff tendinosis. Suspected tear of the coracoacromial ligament. Glenohumeral joint effusion with fluid passing through the rotator cuff defect into the subacromial/subdeltoid bursa. Reviewed, dictated and finalized at [facility]. Foot X-Ray 01/18/25 Hand X-Ray 11/09/23 Hip/Pelvis X-Ray 06/25/20 Knee X-Ray 06/25/20 Shoulder X-Ray 10/18/24 Shoulder MRI 01/25/25 Orthopedics Result Report 01/18/25 Assessment and Plan Assessment and plan (1) Rotator cuff tear, right: Code(s): M75.101 - Unspecified rotator cuff tear or rupture of right shoulder, not specified as traumatic Status: Acute Assessment and Plan: Patient has rotator cuff tear right. She also has acromioclavicular degeneration impinging on the rotator cuff. She has failed conservative treatment like to consider surgical intervention. I have discussed this with her at length including the risks, benefits, limitations, and alternatives in detail. She would like to proceed will proceed per her request with a arthroscopy of the right shoulder open distal clavicle excision rotator cuff debridement repair. Any other pathology will be addressed as needed. (2) Acromioclavicular arthrosis: Code(s): M19.019 - Primary osteoarthritis, unspecified shoulder Status: Acute
[2025-02-26] VITALS (11 sets, daily range): BP systolic 115–141; BP diastolic 64–95; PULSE 59–95; RESP 10–16; TEMP 36.1–36.8; O2SAT 95–100; BMI 25.1
--- OUTSIDE RECORDS SUMMARY | 2025-02-26 00:48 | XMS_ITS | Clinical Summary ---
Author Organization [facility] Address [address] [place] [id number] Care Team Providers Care Hand Cutter Name Role Phone None, Provider MD Primary Care Provider Unavaila ble Immunizations Immunization Administration Dates Next Due MODERNA COVID-19 (12+) MRNA, LNP-S, PF, 100 MCG/ 0.5 ML DOSE 10/25/2020,09/27/2020 Social History Tobacco Use Types Packs/Day Years Used Date Smoking Tobacco: Never Assessed Comments Unknown Sex and Gender Information Value Date Recorded Sex Assigned at Not on file Legal Sex Female 7:01 PM CDT Gender Identity Not on file Sexual Orientation Not on file Plan of Treatment Health Maintenance Due Date Last Done Comments Cervical Cancer Screening Pa p Smear (Age 30 to 64) Every 3 Years 1970 Colorectal Cancer Screening Colonoscopy (10 Years) 1970 Annual Physical 1973 Hepatitis C 1988 DTaP, Tdap and Td Vaccines ( 1 - Tdap) 1989 Hepatitis B Vaccines (1 of 3 - 19+ 3-dose series) 1989 Cervical Cancer Screening Pa p with HPV Testing (Age 30 to 64) Every 5 Years 2000 Cervical Cancer Screening wi th HPV 2000 Pneumococcal Vaccine: 50+ Years (1 of 1 - PCV) 2020 Zoster Vaccines (1 of 2) 2020 Mammogram Screening 03/03/2021 03/03/2019 COVID-19 Vaccine (3 - 2023-2 5 season) 2024 10/25/2020, 09/27/2020 Meningococcal B Vaccine Aged Out No l onger eligible based on patient's age to complete this topic Meningococcal Vaccine Aged Out No gilmar sue eligible based on patient's age to complete this topic RSV Immunizations Under 20 Months Aged Out No longer eligible b ased on patient's age to complete this topic Procedures Procedure Name Priority Date/Time Associated Diagnosis Comments MG SCREENING W ARIANA RABIA DIGI Routine 03/03/2019 12:34 PM CDT Screening breast examination from Last 3 Months or Most Recently Relevant to Health Maintenance Results * MG SCREENING W ARIANA RABIA DIGI (03/03/2019 12:34 PM CDT) Anatomical Region Laterality Modality Breast Bilateral Mammography 03/03/2019 6:10 PM CDT Impressions 03/03/2019 6:12 PM CDT IMPRESSION: No suspicious change since 03/11/2016. See text. Recommendation: 1: Routine screening mammogram Bilateral in 1 Year Assessment: ACR BI-RADS Category 2 - Benign. Interpreted By: Randy Swan, 03/03/2019 6:10 PM Narrative 03/03/2019 6:12 PM CDT Examination: Digital screening mammogram with CAD. Clinical history: Asymptomatic patient presents for routine screening. Comparison: 03/11/2016. Technique: Bilateral digital mammograms. The exam was interpreted with the use of a computer-aided detection (CAD) system. Additional 3-D tomosynthesis images were acquired. Tissue density: The breast tissue is heterogeneously dense. Findings: The breast tissue is heterogeneously dense. The dense tissue may obscure some lesions mammographically. Benign arterial calcifications are noted, somewhat unusual for age, suggesting premature atherosclerosis. Clinical correlation is required. No suspicious mass, microcalcification or area of architectural distortion can be identified. From a mammographic standpoint, routine followup in one year would seem adequate. us Pricila Esquivel NP MAMMO Final Result from Last 3 Months or Most Recently Relevant to Health Maintenance Insurance [facility] Care Teams Hand Cutter Relationship Specialty Start Date End Date None, Provider, PCP - General 02/28/19
--- OUTSIDE RECORDS SUMMARY | 2025-02-26 00:48 | XMS_ITS | Clinical Summary ---
Author Organization [facility] Address [address] [place] [address] Care Team Providers Care Creative Engagement Director Name Role Phone Rajinder Jung MD Primary Care Provider [phone] Source Comments [facility],non-owned Affiliates and Associated Physician Practices is amultiple site organization consisting of ambulatory clinics and hospital sitesin [place], [place], [place] and [place]. This disclosure is being madepursuant to the Care Everywhere program and may not contain all information available regarding this patient. Last updated 18.Compound Time [facility] Allergies No known active allergies Medications * Be aware that medications may not be up to date on this document. Alwaysverify current medications with the patient. lamoTRIgine (LAMICTAL) 100 MG tabletIndicatio ns:Rheumatoid arthritis involving multiple sites with positive rheumatoid factor (HCC),Encounter for long-term (current) use of high-risk medication,Enco unter for therapeutic drug monitoring Take 1.5 (one and one-half) tablets by mouth 2 times daily 1 02/14/20 18 Active DULoxetine (Cymbalta) 60 MG capsule Take 1 (one) capsule by mouth once daily 07/15/20 22 Active valACYclovir (Valtrex) 1 GM tablet TAKE 2 TABLETS BY MOUTH FOR 1 DAYS AT THE ONSET OF FEVER BLISTERS 12/27/19 23 Active traMADol (Ultram) 50 MG tablet 10/18/19 25 Active etanercept (Enbrel SureClick) 50 MG/ML auto-injector penIndications: Rheumatoid arthritis involving multiple sites with positive rheumatoid factor (HCC) Inject 50 (fifty) mg subcutaneously every 7 days 4 mL 6 10/25/19 25 Active folic acid (Folvite) 1 MG tabletIndicatio ns:Encounter for therapeutic drug level monitoring,Enco unter for long-term (current) use of high-risk medication,Enco unter for therapeutic drug monitoring Take 2 (two) tablets by mouth once daily 180 tablet 3 10/25/19 25 Active leflunomide (Arava) 10 MG tabletIndicatio ns:Rheumatoid arthritis involving multiple sites with positive rheumatoid factor (HCC),Encounter for therapeutic drug level monitoring,Enco unter for long-term (current) use of high-risk medication,Enco unter for therapeutic drug monitoring Take 1 (one) tablet by mouth once daily 90 tablet 1 10/25/19 25 Active methotrexate 2.5 MG tablet Take 4 (four) tablets by mouth every 7 days 48 tablet 1 10/25/19 25 Active diclofenac sodium EC (Voltaren) 75 MG tablet Take 1 (one) tablet by mouth 2 times daily 60 tablet 4 10/25/19 25 025 Active Active Problems Problem Noted Date Diagnosed Date Rheumatoid arthritis involvi ng multiple sites with positive rheumatoid factor 07/21/2018 Encounter for therapeutic drug level monitoring 05/27/2017 Adverse effect of drug or medicament 06/06/2015 Rheumatoid arthritis 06/06/2015 Other predatory animal exterminator (current) drug therapy 5 Migraine without status migrainosus, not intract able 05/01/2013 Major depressive disorder, single episode 2012 Encounters Date Type Department Care Team Description 02/09/2025 Orders Only [facility] - Rheumatology [address] [place] [phone] Lesia Randall MD Rheumatoid arthritis involving multiple sites with positive rheumatoid factor (HCC); Encounter for therapeutic drug level monitoring; Encounter for long-term (current) use of high-risk medication; Encounter for therapeutic drug monitoring 01/10/[address] [facility] - Rheumatology [address] [place] [address], [place] [phone] Lesia Randall MD Medication Prior Auth Request (Enbrel) 12/15/[address] [facility] - Rheumatology [address] [facility] [place] [phone] Lesia Randall MD Rheumatoid arthritis involving multiple sites with positive rheumatoid factor (HCC); Encounter for therapeutic drug level monitoring; Encounter for long-term (current) use of high-risk medication; Encounter for therapeutic drug monitoring from Last 3 Months Immunizations Immunization Administration Dates Next Due INFLUENZA VACCINE, QUADR. (F LUZONE; FLULAVAL; FLUARIX; AFLURIA QUADRIVALENT; 6MO+), 0.5 ML (IIV4) 07/21/2018 iNFLUENZA VACCINE, RECOM-CAGLE, QUADR. (FLUBLOCK QUADRIVALENT; 18Y+) (RIV4) 05/20/2021,06/18/2020 Family History Medical History Relation Name Comments Diabetes Paternal Grandfather 50y.o Relation Name Status Comments Paternal Grandfather Social History Tobacco Use Types Packs/Day Years Used Date Smoking Tobacco: Former Cigarettes Q uit: 08/23/2011 Smokeless Tobacco: Never Tobacco Cessation:Counseling Given: Not Answered Alcohol Use Standard Drinks/Week Comments No 0 (1 standard drink = 0.6 oz pur e alcohol) socially PHQ-2 Answer Date Recorded Patient Health Questionnaire-2 Score 4 10/24/2024 Comments No Sex and Gender Information Value Date Recorded Sex Assigned at Not on file Legal Sex Female 5:25 PM APPAREL MERCHANDISER Gender Identity Not on file Sexual Orientation Not on file Last Filed Vital Signs Vital Sign Reading Time Taken Comments Blood Pressure 124/82 10/24/2024 1:24 PM [employer]PAREL MERCHANDISER Pulse 93 10/24/2024 1:24 PM APPAREL MERCHANDISER Temperature 36.7 C (98.1 F) 10/24/2024 1:24 PM APPAREL MERCHANDISER Respiratory Rate 16 05/27/2017 1:39 PM CDT Oxygen Saturation 98% 10/24/2024 1:24 PM APPAREL MERCHANDISER Inhaled Oxygen Concentration - - Weight 70.8 kg (156 lb) 10/24/2024 1:24 PM APPAREL MERCHANDISER Height 160 cm (5' 3) 10/24/2024 1:24 PM APPAREL MERCHANDISER Body Mass Index 27.63 10/24/2024 1:24 PM APPAREL MERCHANDISER Plan of Treatment Upcoming Encounters Date Type Department Care Team (Late st Contact Info) Description 03/27/2025 12:40 PM CDT Office Visit [facility] - Rheumatology [address] [facility] [place] [address] Lesia Randall MD [facility] [phone] Health Maintenance Due Date Last Done Comments COLOGUARD (AGES 45-75) - COLON CA SCREENING 1970 COLON MONITORING 1970 COLONOSCOPY - COLON CA SCREENING 1970 CT COLONOGRAPHY - COLON CA SCREENING 1970 Colorectal Cancer Screening 1970 FIT - COLON CA SCREENING 1970 FLEX SIG - COLON CA SCREENING 1970 LIPID TESTING 1970 HIV SCREENING 1985 HEPATITIS C SCREENING 06/27/1988 DTAP/TDAP/TD VACCINES (1 - Tdap) 1989 HEPATITIS B VACCINE (1 of 3 - 19+ 3-dose series) 1989 PAP SMEAR 1991 PNEUMOCOCCAL VACCINE 50+ (1 of 1 - PCV) 2020 ZOSTER VACCINE (1 of 2) 2020 MAMMOGRAM 03/03/2021 03/03/2019 COVID-19 VACCINE ( - season) 2024 09/29/2021, 04/15/2021, 10/25/2020, Additional history exists DEPRESSION SCREENING 08/23/2024 01/12/2024, 08/19/20 22 INFLUENZA VACCINE (Season Ended) 2025 05/20/2021, 06/18/2020, 08/08/2019, Additional history exists SCREENING FOR DIABETES 01/20/2028 , 10/18/2024, 05/24/2024, Additional history exists HIB VACCINE Aged Out No longer eligi ble based on patient's age to complete this topic HPV VACCINE Aged Out No longer eligi ble based on patient's age to complete this topic MENINGOCOCCAL (Group B) VACCINE SHARED DECISION-MAKING Aged Out No longer eligible based on patient's age to complete this topic MENINGOCOCCAL GROUPS A/C/Y/W VACCINE Aged Out No longer eligible based on patient's age to complete this topic Procedures Procedure Name Priority Date/Time Associated Diagnosis Comments URINALYSIS W/MICROSCOPIC REFLEX TO CULTURE Routine 01/19/2025 1:13 PM CDT Rheumatoid arthritis involving multiple sites with positive rheumatoid factor (HCC) Encounter for therapeutic drug level monitoring Encounter for long-term (current) use of high-risk medication Encounter for therapeutic drug monitoring ERYTHROCYTE SEDIMENTATION RATE Routine 01/19/2025 1:10 PM CDT Rheumatoid arthritis involving multiple sites with positive rheumatoid factor (HCC) Encounter for therapeutic drug level monitoring Encounter for long-term (current) use of high-risk medication Encounter for therapeutic drug monitoring C-REACTIVE PROTEIN Routine 01/19/2025 1: 10 PM CDT Rheumatoid arthritis involving multiple sites with positive rheumatoid factor (HCC) Encounter for therapeutic drug level monitoring Encounter for long-term (current) use of high-risk medication Encounter for therapeutic drug monitoring COMPREHENSIVE METABOLIC PANEL Routine 01/19/2025 1:10 PM CDT Rheumatoid arthritis involving multiple sites with positive rheumatoid factor (HCC) Encounter for therapeutic drug level monitoring Encounter for long-term (current) use of high-risk medication Encounter for therapeutic drug monitoring CBC W AUTO DIFFERENTIAL Routine 01/19/2025 1:10 PM CDT Rheumatoid arthritis involving multiple sites with positive rheumatoid factor (HCC) Encounter for therapeutic drug level monitoring Encounter for long-term (current) use of high-risk medication Encounter for therapeutic drug monitoring from Last 3 Months Results * URINALYSIS W/MICROSCOPIC REFLEX TO CULTURE (01/19/2025 1:13 PM CDT) Specific [place] UA 1.006 1.005 - 1.030 [facility] INSURANCE BILL pH UA 6.0 5.0 - 7.5 [facility] INSURANCE BILL Color UA Yellow Yellow [facility] INSURANCE BILL Appearance Clear Clear [facility] INSURANCE BILL Leukocyte UA Negative Negative [facility] INSURANCE BILL Protein UA Negative Negative/Tra ce [facility] INSURANCE BILL Glucose UA Negative Negative [facility] INSURANCE BILL Ketone UA Negative Negative [facility] INSURANCE BILL Occult Blood Urine Negative Negative [facility] INSURANCE BILL Bilirubin UA Negative Negative [facility] INSURANCE BILL Urobilinogen 0.2 0.2 - 1.0 mg/dL [facility] INSURANCE BILL Nitrite UA Negative Negative [facility] INSURANCE BILL Microscopic Examination Urine Comment [facility] INSURANCE BILL Comment:Microscopic follows if indicated. Microscopic Examination Urine See below: [facility] INSURANCE BILL Comment:Microscopic was margaux cated and was performed. Urinalysis Reflex Comment [facility] INSURANCE BILL Comment: This specimen will not reflex to a Urine Culture. Performed at: [address] [id number] [employer]: Earl Ma PhD, Phone: [phone] WBC UA None seen 0 - 5 /hpf [facility] INSURANCE BILL RBC UA None seen 0 - 2 /hpf [facility] INSURANCE BILL Epithelial Cells (non renal) None seen 0 - 10 /hpf [facility] INSURANCE BILL Casts ua None seen None seen /lpf [facility] INSURANCE BILL Bacteria UA None seen None seen/Few [facility] INSURANCE BILL Urine MID-STREAM URINE SPECIMEN / Unknown 01/19/2025 1:13 PM CDT 01/19/2025 Narrative [facility] INSURANCE BILL - 01/20/2025 7:09 AM CDT Performed at: [address] [id number] [employer]: Earl Ma PhD, Phone: [phone] us Lesia Randall MD LAB - URINALYSIS ORDER DERECK Final Result [facility] INSURANCE BILL [address] [place] [address] * C-REACTIVE PROTEIN (01/19/2025 1:10 PM CDT) C-Reactive Protein 1 0 - 10 mg/L [facility] INSURANCE BILL Blood BLOOD SPECIMEN / Unknown 01/19/2025 1:10 PM CDT 01/19/2025 Narrative [facility] INSURANCE BILL - 01/20/2025 11:10 AM CDT Performed at: [address] [id number] [employer]: Earl Ma PhD, Phone: [phone] Lesia Randall MD LAB - CHEMISTRY ORDERA BLES Final Result Performing Organization Address City/[facility]/ZIP Co de Phone Number [facility] INSURANCE BILL [address] [place] [address] * ERYTHROCYTE SEDIMENTATION RATE (01/19/2025 1:10 PM CDT) [facility] Erythrocyte Sedimentation Rate Westergren 22 0 - 40 mm/hr [facility] INSURANCE BILL Blood BLOOD SPECIMEN / Unknown 01/19/2025 1:10 PM CDT 01/19/2025 Narrative [facility] INSURANCE BILL - 01/20/2025 7:09 AM CDT Performed at: [address] [id number] [employer]: Earl Ma PhD, Phone: [phone] Lesia Randall MD LAB - HEMATOLOGY ORDER DREECK Final Result Performing Organization Address [facility] Co de Phone Number [facility] INSURANCE BILL [address] [place] [address] * (ABNORMAL) CBC WITH DIFFERENTIAL (01/19/2025 1:10 PM CDT) [facility] WBC 6.4 3.4 - 10.8 x10E3/uL [facility] INSURANCE BILL RBC 4.22 3.77 - 5.28 x10E6/uL [facility] INSURANCE BILL Hemoglobin 13.2 11.1 - 15.9 g/dL [facility] INSURANCE BILL Hematocrit 41.5 34.0 - 46.6 % [facility] INSURANCE BILL MCV 98(H) 79 - 97 fL [facility] INSURANCE BILL MCH 31.3 26.6 - 33.0 pg [facility] INSURANCE BILL MCHC 31.8 31.5 - 35.7 g/dL [facility] INSURANCE BILL RDW 12.6 11.7 - 15.4 % [facility] INSURANCE BILL Platelet Count 270 150 - 450 x10E3/uL [facility] INSURANCE BILL Granulocytes % 51 Not Estab. % [facility] INSURANCE BILL Lymphocytes % 38 Not Estab. % [facility]UR[facility] BILL Monocytes % 8 Not Estab. % [facility] INSURANCE BILL Eosinophils % 2 Not Estab. % [facility] INSURANCE BILL Basophils % 1 Not Estab. % [facility] INSURANCE BILL Granulocytes Absolute 3.2 1.4 - 7.0 x10E3/uL [facility] INSURANCE BILL Lymphocytes Absolute 2.4 0.7 - 3.1 x10E3/uL [facility] INSURANCE BILL Monocytes Absolute 0.5 0.1 - 0.9 x10E3/uL [facility] INSURANCE BILL Eosinophils Absolute 0.2 0.0 - 0.4 x10E3/uL [facility] INSURANCE BILL Basophils Absolute 0.1 0.0 - 0.2 x10E3/uL [facility] INSURANCE BILL Immature Granulocytes 0 Not Estab. % [facility] INSURANCE BILL Immature Granulocytes Absolute 0.0 0.0 - 0.1 x10E3/uL [facility] INSURANCE BILL Blood BLOOD SPECIMEN / Unknown 01/19/2025 1:10 PM CDT 01/19/2025 Narrative [facility] INSURANCE BILL - 01/20/2025 7:09 AM CDT Performed at: [address] [id number] [employer]: Earl Ma PhD, Phone: [phone] Lesia Randall MD LAB - HEMATOLOGY ORDER DERECK Final Result [facility] INSURANCE BILL [address] [place] [address] * COMPREHENSIVE METABOLIC PANEL (01/19/2025 1:10 PM CDT) [facility] Glucose 78 70 - 99 mg/dL [facility] INSURANCE BILL BUN 9 6 - 24 mg/dL [facility] INSURANCE BILL Creatinine 0.74 0.57 - 1.00 mg/dL [facility] INSURANCE BILL eGFR by CKD-EPI 96 >59 mL/min/1.7 3 [facility] INSURANCE BILL BUN/Creatinine Ratio 12 9 - 23 [facility] INSURANCE BILL Sodium 140 134 - 144 mmol/L [facility] INSURANCE BILL Potassium 4.8 3.5 - 5.2 mmol/L [facility] INSURANCE BILL Chloride 103 96 - 106 mmol/L [facility] INSURANCE BILL CO2 20 20 - 29 mmol/L [facility] INSURANCE BILL Calcium 9.9 8.7 - 10.2 mg/dL [facility] INSURANCE BILL Protein Total 7.0 6.0 - 8.5 g/dL [facility] INSURANCE BILL Albumin 4.6 3.8 - 4.9 g/dL [facility] INSURANCE BILL Globulin Total 2.4 1.5 - 4.5 g/dL [facility] INSURANCE BILL Bilirubin Total 0.3 0.0 - 1.2 mg/dL [facility] INSURANCE BILL Alkaline Phosphatase 84 44 - 121 IU/L [facility] INSURANCE BILL AST 28 0 - 40 IU/L [facility] INSURANCE BILL ALT 27 0 - 32 IU/L [facility] INSURANCE BILL Blood BLOOD SPECIMEN / Unknown 01/19/2025 1:10 PM CDT 01/19/2025 Narrative [facility] INSURANCE BILL - 01/20/2025 7:09 AM CDT Performed at: 01 - [address] [id number] [employer]: Earl Ma PhD, Phone: [phone] us Lesia Randall MD LAB - CHEMISTRY ORDERA BLES Final Result Performing Organization Address City/State/[facility] Co de Phone Number [facility] INSURANCE BILL [address] [place] [address] from Last [address] [place] [address] [place] [address] [facility] [employer] Member Subscriber Plan / Payer (Ef fective 2015-) Name:Daisha Montaño A Relation to Subscriber:Self Name:ANGELINAELENAVANESSA BORDENCONSUELO E Marce Payer ID:[id number] ([employer]IC) Type:O Address: [address] [facility] Member Subscriber Plan / Payer (Ef fective 2015-) Name:Daisha Montaño A Relation to Subscriber:Self Name:CONSUELO ESCOBAR Payer ID:[id number] ([facility]) Type:O Address: [address] CARE Member Subscriber Plan / Payer (Ef fective 2015-) Name:Daisha Montaño A Relation to Subscriber:Self Name:DEVINMICHICONSUELO Payer ID:[id number] ([facility]) Type:O Address: [address] [facility] Member Subscriber Plan / Payer (Ef fective 2015-) Name:Daisha Montaño A Relation to Subscriber:Self Name:CONSUELO ESCOBAR Payer ID:[id number] ([facility]) Type:O Address: [address] [facility] Member Subscriber Plan / Payer (Ef fective 2015-) Name:Daisha Montaño A Relation to Subscriber:Self Name:CONSUELO ESCOBAR Payer ID:[id number] (NAIC) Type:O Address: [place] [id number] Member Subscriber Plan / Payer (Ef fective 2015-Present) Name:Vanessa Montañojessica Zheng Relation to Subscriber:Self Name:CONSUELO ESCOBAR Payer ID:[id number] (NAIC) Type:[employer] Address: [place] [id number] [facility] Member Subscriber Plan / Payer ( fective 2015-Present) Name:Jim ShultzmichiDaisha Relation to Subscriber:Self Name:CONSUELO ESCOBAR Payer ID:[id number] (NAIC) Type:[employer] Address: [place] [phone] Care Teams Creative Engagement Director Relationship Specialty Start Date End Date Rajinder Jung MD [address] [place] [address] PCP - General 11/14/20
--- OUTSIDE RECORDS SUMMARY | 2025-02-26 00:48 | XMS_ITS | Encounter Summary ---
Author Organization [facility] Address [address] [place] [address] Care Team Providers Care Human Resource Manager Name Role Phone Blake Bell MD Primary Care Provider [phone] Rajinder Jung MD Primary Care Provider [phone] Reason for Visit * Reason Onset Date Comments MEDICATION REFILL 07/26/2018 Encounter Details Date Type Department Care Team (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 Contact Info) Description 03/27/2025 12:40 PM CDT Office Visit [facility] - Rheumatology [address] [place] [address], [facility] [place] [address] Lesia Randall MD [address] [phone] documented as of this encounter Visit Diagnoses Not on filedocumented in this encounter Care Teams Human Resource Manager Relationship Specialty Start Date End Date Blake Bell MD [facility] [place] [address] PCP - General 06/14/08 11/13/20 Rajinder Jung MD [address] [place] [address] PCP - General 11/14/20 documented as of this encounter
--- OUTSIDE RECORDS SUMMARY | 2025-02-26 00:49 | XMS_ITS | Patient Health Record ---
Author Organization [facility] [employer] [facility] Address [address] [place] [address] Care Team Providers Care Food Processing Scientist Name Role Phone Rajinder Jung MD Primary Care Provider Rashaun Moody Unavailable [phone] So Yanira Unavailable [phone] Allergies No Known Allergies Reason For Referral No Information Medications Medication SIG (Take, Route, Frequency, Duration) Notes Start Date End Date Status lamoTRIgine 100 MG TAKE 1 TABLET BY MOUTH TWICE DAILY; Duration: 90 Active Hydroxychloroquine Sulfate 200 MG Oral 08/02/2023 Not-Taking DULoxetine HCl 60 MG 1 capsule Oral Once a day; Duration: 90 days Active Meclizine HCl 25 MG Oral 08/02/2023 Not-Taking lamoTRIgine 100 MG 1 tablet Oral twice a day; Duration: 90 days Active buPROPion HCl ER (SR) 150 MG 1 tablet Orally twice a day; Duration: 30 days 06/05/2024 Not-Taking Methotrexate 2.5 MG Oral 08/02/2023 Active buPROPion HCl ER (XL) 150 MG 1 tablet in the morning Orally Once a day; Duration: 30 days 01/18/2025 Active Folic Acid 1 MG Oral 08/02/2023 Act traa Leflunomide 10 mg Oral 08/02/2023 A ctive ENBREL SURECLICK 50 MG/ML (1 ML) SUBCUTANEOUS PEN INJECTOR *Reorder from TVPage for eRx and Interaction Alerts* 08/02/2023 Active valACYclovir HCl 1 GM Oral 08/02/2023 Active DULoxetine HCl 60 MG TAKE 1 CAPSULE BY MOUTH DAILY; Duration: 90 Active Immunizations Vaccine Route Administration Date Status Commjúnior nts Pfizer [employer] Covid-19 Vac cine 2nd dose Unknown 09/29/2021 Administered Moderna Covid-19 Vaccine 1st dose Unknown 09/27/2020 Ad ministered Moderna Covid-19 Vaccine 1st dose Unknown 10/25/2020 Ad ministered Moderna Covid-19 Vaccine 1st dose Unknown 04/15/2021 Ad ministered Influenza, injectable, MDCK, preservative free Unknown 08/08/2019 Administered Social History Tobacco Use: Social History Observation Description Date Details (start date - stop date) Current Smoker NA - NA Sex Assigned At : Social History Observation Description Sex Assigned At Female Tobacco Control (Standard) Question Answer Notes Tobacco use: Current smoker Problems Problem Type SNOMED Code ICD Code Onset Dates Problem Status W/U Status Risk Notes Problem Tobacco user (989459051) Nicotine dependence, unspecified, uncomplicated (F17.200) Active confirmed Problem Major depressive disorder, recurrent, in remission, unspecified (F33.40) Active confirmed Problem Generalized anxiety disorder (48609350) Generalized anxiety disorder (F41.1) Active confirmed Vital Signs Heart Rate 101 /min 01/18/2025 Height-cm 161.29 cm 01/18/2025 Blood pressure diastolic 83 mm Hg 01/18/2025 Weight-kg 66.04 kg 01/18/2025 Height 63.50 in 01/18/2025 Blood pressure systolic 132 mm Hg 01/18/2025 Weight 145.6 lbs 01/18/2025 BMI 25.38 kg/m2 01/18/2025 Encounters Encounter Location Date Provider Diagnosis [facility] [address] [place] [address] [address] 03/16/2024 Rashaun Buchanan Other fpc (current) drug therapy Z79.899 ; Major depressive disorder, recurrent, in remission, unspecified F33.40 ; Generalized anxiety disorder F41.1 and Nicotine dependence, unspecified, uncomplicated F17.200 [facility] [place] [id number] [facility] [address] [address] 01/18/2025 Rashaun Buchanan Encounter for screen ing for cardiovascular disorders Z13.6 ; Other manager terminal (current) drug therapy Z79.899 ; Major depressive disorder, recurrent, in remission, unspecified F33.40 ; Generalized anxiety disorder F41.1 and Nicotine dependence, unspecified, uncomplicated F17.200 [place] [address] [facility] [address] [place] [address] 02/29/2024 Thena So [address] [place] [address] 03/02/2024 Rashaun Buchanan Major depressive disorder, recurrent, in remission, unspecified F33.[address] [facility] [address] [place] [address] 06/02/2024 Thena So Nicotine dependence, unspecified, uncomplicated F17.[address] [facility] [address] [place] [address] 01/17/2025 Rashaun Buchanan Assessments Encounter Date Diagnosis (ICD Code) Assessment Notes Treatment Notes Treatment Clinical Notes Section Notes 03/02/2024 Major depressive disorder, recurrent, in remission, unspecified (ICD-10 - F33.40) 03/16/2024 Major depressive disorder, recurrent, in remission, unspecified (ICD-10 - F33.40) 1-597-Quit - Yes [place] Tobacco Quitline Call a Smoking QuitlineThe [employer] Cancer [place] Smoking Quitline, (8-413-90J-QUIT )Smokefree.gov, which connects you with your State's Quitline, (8-333-YAFEPHM) [facility] Smoking Quitline, (1-942-IKOJPKG) 1. Anxiety: - Patient reports situational anxiety due to recent house repairs costing over $50,000. - Plan: Encourage patient to monitor anxiety levels and contact the clinic if symptoms worsen or become unmanageable. Provide information on coping strategies and stress management techniques. 2. Depression: - Patient reports situational depression, likely related to recent stressors. - Plan: Continue Lamotrigine 100 mg twice a day. Monitor patient's mood and encourage them to contact the clinic if depressive symptoms worsen or become unmanageable. 3. Medication management: - Patient recently restarted Lamotrigine after a week and a half off the medication. - Plan: Continue Lamotrigine 100 mg twice a day. Monitor patient's response to the medication and adjust the dosage if necessary. 4. Smoking cessation: - Patient expresses interest in restarting Bupropion for smoking cessation in the future. - Plan: When the patient is ready, prescribe Bupropion 150 mg SR twice a day for smoking cessation. Provide information on nicotine replacement therapy options, such as patches, and discuss the [place] tobacco quit line for additional support. 5. Follow-up: - Plan: Schedule a follow-up appointment in six months or sooner if the patient experiences any issues or concerns. Patient may call the clinic to discuss Bupropion prescription for smoking cessation when ready. 03/16/2024 Other fpc (current) drug therapy (ICD-10 - Z79.899) 1-866-Quit - Yes [place] Tobacco Quitline Call a Smoking QuitlineThe [employer] Cancer [place] Smoking Quitline, (2-236-90H-QUIT )Smokefree.gov, which connects you with your State's Quitline, (5-294-UNNAYDN) [facility] Smoking Quitline, (9-283-JVQSQMI) 1. Anxiety: - Patient reports situational anxiety due to recent house repairs costing over $50,000. - Plan: Encourage patient to monitor anxiety levels and contact the clinic if symptoms worsen or become unmanageable. Provide information on coping strategies and stress management techniques. 2. Depression: - Patient reports situational depression, likely related to recent stressors. - Plan: Continue Lamotrigine 100 mg twice a day. Monitor patient's mood and encourage them to contact the clinic if depressive symptoms worsen or become unmanageable. 3. Medication management: - Patient recently restarted Lamotrigine after a week and a half off the medication. - Plan: Continue Lamotrigine 100 mg twice a day. Monitor patient's response to the medication and adjust the dosage if necessary. 4. Smoking cessation: - Patient expresses interest in restarting Bupropion for smoking cessation in the future. - Plan: When the patient is ready, prescribe Bupropion 150 mg SR twice a day for smoking cessation. Provide information on nicotine replacement therapy options, such as patches, and discuss the [place] tobacco quit line for additional support. 5. Follow-up: - Plan: Schedule a follow-up appointment in six months or sooner if the patient experiences any issues or concerns. Patient may call the clinic to discuss Bupropion prescription for smoking cessation when ready. 06/02/2024 Nicotine dependence, unspecified, uncomplicated (ICD-10 - F17.200) 01/18/2025 Encounter for screening for cardiovascular disorders (ICD-10 - Z13.6) 01/18/2025 Other fpc (current) drug therapy (ICD-10 - Z79.899) 03/16/2024 Generalized anxiety disorder (ICD-10 - F41.1) 436-Quit - Yes [place] Tobacco Quitline Call a Smoking QuitlineThe [employer] Cancer [place] Smoking Quitline, (5-564-00P-QUIT )Smokefree.gov, which connects you with your State's Quitline, (9-589-QLQPEYF) [facility] Smoking Quitline, (7-690-SVYNVLX) 1. Anxiety: - Patient reports situational anxiety due to recent house repairs costing over $50,000. - Plan: Encourage patient to monitor anxiety levels and contact the clinic if symptoms worsen or become unmanageable. Provide information on coping strategies and stress management techniques. 2. Depression: - Patient reports situational depression, likely related to recent stressors. - Plan: Continue Lamotrigine 100 mg twice a day. Monitor patient's mood and encourage them to contact the clinic if depressive symptoms worsen or become unmanageable. 3. Medication management: - Patient recently restarted Lamotrigine after a week and a half off the medication. - Plan: Continue Lamotrigine 100 mg twice a day. Monitor patient's response to the medication and adjust the dosage if necessary. 4. Smoking cessation: - Patient expresses interest in restarting Bupropion for smoking cessation in the future. - Plan: When the patient is ready, prescribe Bupropion 150 mg SR twice a day for smoking cessation. Provide information on nicotine replacement therapy options, such as patches, and discuss the [place] [employer] quit line for additional support. 5. Follow-up: - Plan: Schedule a follow-up appointment in six months or sooner if the patient experiences any issues or concerns. Patient may call the clinic to discuss Bupropion prescription for smoking cessation when ready. 01/18/2025 Major depressive disorder, recurrent, in remission, unspecified (ICD-10 - F33.40) 03/16/2024 Nicotine dependence, unspecified, uncomplicated (ICD-10 - F17.200) 1-866-Quit - Yes [place] Tobacco Quitline Call a Smoking QuitlineThe [employer] [place] Smoking Quitline, (0-117-39X-QUIT )Smokefree.gov, which connects you with your State's Quitline, (9-762-KQGFKQM) [facility] Smoking Quitline, (8-169-ZFLRJRW) 1. Anxiety: - Patient reports situational anxiety due to recent house repairs costing over $50,000. - Plan: Encourage patient to monitor anxiety levels and contact the clinic if symptoms worsen or become unmanageable. Provide information on coping strategies and stress management techniques. 2. Depression: - Patient reports situational depression, likely related to recent stressors. - Plan: Continue Lamotrigine 100 mg twice a day. Monitor patient's mood and encourage them to contact the clinic if depressive symptoms worsen or become unmanageable. 3. Medication management: - Patient recently restarted Lamotrigine after a week and a half off the medication. - Plan: Continue Lamotrigine 100 mg twice a day. Monitor patient's response to the medication and adjust the dosage if necessary. 4. Smoking cessation: - Patient expresses interest in restarting Bupropion for smoking cessation in the future. - Plan: When the patient is ready, prescribe Bupropion 150 mg SR twice a day for smoking cessation. Provide information on nicotine replacement therapy options, such as patches, and discuss the [place] tobacco quit line for additional support. 5. Follow-up: - Plan: Schedule a follow-up appointment in six months or sooner if the patient experiences any issues or concerns. Patient may call the clinic to discuss Bupropion prescription for smoking cessation when ready. 01/18/2025 Generalized anxiety disorder (ICD-10 - F41.1) 01/18/2025 Nicotine dependence, unspecified, uncomplicated (ICD-10 - F17.200) 01/18/2025 Other Halley Escobar, a patient with a history of smoking and vaping, presents for follow-up of medication management for depression and anxiety, reporting overall improvement in mood but continued nicotine use. Nicotine Dependence Assessment: Patient reports continued smoking, approximately every 2-3 days, and vaping. Previous attempts at smoking cessation with bupropion SR 150 mg twice daily were initiated in May, but patient discontinued use due to perceived ineffectiveness. Patient expresses interest in trying bupropion XL for smoking cessation. Plan: - Start bupropion XL 150 mg PO every morning for smoking cessation - Patient instructed to discontinue medication if ineffective and not refill - Follow-up in 3 months Depression Assessment: Patient reports improved mood with current medication regimen. Currently taking duloxetine 60 mg daily and lamotrigine 100 mg twice daily. Plan: - Continue duloxetine - Continue lamotrigine the note is transcribed using speech recognition software. It is a reflection of a visit with the patient. It might have some inaccuracy, including medication names and transcribing errors, though efforts have been made to correct them. Plan Of Treatment Next Appt Details Provider Name:Rashaun woods, 04/20/2025 04:45:00 PM, [address], [facility] [address], [place], [address], Insurance Providers Payer Name Payer Address Payer Phone Subscriber Number Group Number Insured Name Patient Relationship to Insured Coverage Start Date Coverage End Date [facility] [address] [place] [address] [id number] DEVIN BORDEN, JOSH Self - patient is the insured Medical (General) History Medical History History ICD Code Problems: Long-term drug therapy Nicotine dependence with current use Recurrent major depression in remission Rheumatoid arthritis , Surgical History Surgery Date(Month/Year) Arthrd ant donnell/xoral c1-c2 (73753) Foot surgery / Tendon repair
--- NOTE | 2025-02-26 06:46 | WPDHPUPDATE1 ---
History and Physical Update Update Date/Time: 02/26/25 06:46 History and Physical has been reviewed, including an updated exam of the patient. There are NO changes in the patient's condition. Risks, benefits, and alternatives have been discussed and questions answered. Patient agrees to proceed with procedure.
[2025-02-26] MEDS: ACETAMINOPHEN 500 MG TABLET 1000 MG PO (08:00)
[2025-02-26] MEDS: LACTATED RINGERS 1,000 ML 30 ML IV CONT ×2 (08:30→11:02)
[2025-02-26] MEDS: KETOROLAC 15 MG/ML VIAL (*BKC) IV PUSH (08:30)
--- NOTE | 2025-02-26 09:16 | P.PNAN_ITS ---
Anes - Initial Pre Proc Eval Procedure: Operation Date: 02/26/25 09:30 Proposed Procedures p Right Shoulder Arthroscopy, Open Rotator Cuff Repair, Distal Clavicle Excision - Wong Swan MD Date/Time: 02/26/25 09:16 Surgeon: Wong Swan MD Pre Op Diagnosis: right rotator cuff tear, ac arthritis Patient Data Age: 54 Gender: F Height: 1.61 m Weight: 65.9 kg Allergies Allergy/AdvReac Type Severity Reaction Status Date / Time diclofenac AdvReac Intermediate Nausea Verified 02/19/25 15:55 Home Medications ?Medication ?Instructions ?Recorded ?Confirmed ?Type etanercept 50 mg/mL (1 mL) 50 mg subcut WEEKLY 04/17/20 02/19/25 History subcutaneous syringe (Enbrel) folic acid 1 mg tablet 2 mg PO DAILY 04/17/20 02/19/25 History lamotrigine 100 mg tablet 100 mg PO BID 04/17/20 02/19/25 History leflunomide 10 mg tablet 10 mg PO DAILY 04/17/20 02/19/25 History methotrexate sodium 2.5 mg tablet 10 mg PO WEEKLY 04/17/20 02/19/25 History duloxetine 60 mg capsule,delayed 60 mg PO DAILY 12/18/20 02/19/25 History release valacyclovir 1 gram tablet See Rx Instructions PO .COMPLEX 06/12/24 02/19/25 Rx (Valtrex) PRN cold sores #30 tabs tramadol 50 mg tablet 50 mg PO Q6H PRN pain #120 tabs 01/22/25 02/19/25 Rx bupropion HCl 150 mg 24 hr tablet, 150 mg PO DAILY 02/19/25 02/19/25 History extended release Patient hx anesthesia problems: none Family hx anesthesia problems: none Results Review: All pre-operative results and documents have been reviewed as part of the pre- operative evaluation. [facility] Past Medical History Medical History Hypersomnia Chronic low back pain with right-sided sciatica COVID (07/14/22) BMI 24.0-24.9, adult Chronic pain in right shoulder 10/18/2024 X-ray of the right shoulder reveals moderate osteoarthritis. Herpes zoster De Quervain's disease (tenosynovitis) (~08/2023) left wrist. X-ray of the left hand on 10/30/2023 reveals no bony defect of the distal radius or ulna. Breast cancer screening by mammogram Colon cancer screening Cologuard screening was negative on 11/27/2023 with recheck in 3 years. Low back pain Mass of right foot Right foot pain Pharyngitis Fever blister (~09/14/22) BMI 28.0-28.9,adult Overweight (BMI 25.0-29.9) Bullous myringitis of right ear Fracture of tarsal bone of right foot medial cuneiform Fracture of metatarsal of right foot, closed first, third and fourth bases - nondisplaced Rheumatoid arthritis of multiple sites without organ or system involvement with positive rheumatoid factor CRP 1, ESR 22, WBC 6.4, creatinine 0.74 on 01/19/2025. Nicotine vapor product user Migraine headache Chronic depression Sore throat Surgical History Surgical History History of neck surgery (~2017) Social History Social History Smoking packs per day: 0.5 Smoking cigarettes per day: 10.0 Years smoked: 35 Smoking pack-years: 17.50 Smoking status: Current every day smoker Tobacco type: e-cigarettes/vaping Second hand tobacco smoke exposure: No Smoking end date: 08/23/20 Additional smoking assessment comments: still vapes daily with nicotine Alcohol intake: former Alcohol use details: socially Substance use: never Substance use type: does not use Current Housing: Decline to Answer Concerned About Future Housing: Decline to Answer Difficulty Paying Gas/Electric Bills: Decline to Answer Difficulty Paying for Meds: Decline to Answer Currently Unemployed: Decline to Answer Education: Decline to Answer Difficulty w/ Childcare or Family Care: Decline to Answer Living arrangements: alone Occupation/Education: occupation Additional occupation/education comments: [employer], teacher Gender identity (if verbalized by the patient): Female Spiritual care concerns: No Anes - Eval Final PreProcedure Day of Procedure 02/26/25 09:16 Patient weight: normal Heart: regular rate and rhythm Lungs: clear to auscultation Airway: Mallampati scale class II Neurological: alert and oriented Last oral intake: >/= 8 hours ASA classification: III Emergent: no Anesthetic plan: proceed Anesthesia type and monitoring: general ETT and standard monitoring Results Review: All pre-operative results and documents have been reviewed as part of the pre- operative evaluation. Informed Consent: The patient's anesthetic plan and its attendant risks and benefits were discussed with the patient/family/POA. Questions were solicited and answers provided to the satisfaction of the patient/family/POA.
[2025-02-26] MEDS: ceFAZolin 2 GM/D5W 50 ML 2 GM/50 ML BAG IVPB (09:41)
[2025-02-26] MEDS: LIDO 1%/EPINEPHRINE 1:100,000 20 ML VIAL 25 ML INFILTRATE (10:20)
--- NOTE | 2025-02-26 10:45 | P.OP_ITS ---
Procedure Note - Detailed Date of Procedure 02/26/25 Pre-op Diagnosis RIGHT rotator cuff tear Acromioclavicular arthritis Post-op Diagnosis Same Procedure Performed Rotator cuff repair Distal clavicle excision Surgeon Wong Swan MD Anesthesia General Findings Pain and Tearing of the rotator Cuff Description of Procedure Patient brought to the operative room #7. A general anesthetic was administered. The patient was placed in the beach chair position with the RIGHT shoulder exposed.? After sterile prep and drape, standard posterior and lateral portals were used for arthroscopy. The joint itself looked reasonably good the biceps tendon was intact.? There was fraying and tearing of the rotator cuff area in the supraspinatus tear region. This was gently debrided.? The subacromial space had an intense bursa, this was debrided with a shaver and acromioplasty performed arthroscopically.? The subacromial space was quite tight initially. I then proceeded to open the shoulder. A longitudinal incision made from the AC joint distalward over the shoulder.? Dissection carried down to the fascia. The fascia overlying the acromioclavicular joint was split. The AC joint found and a distal clavicle excision performed removing 3 to 4 millimeters of bone.? The edges beveled.? The deltoid was then split from the tip of the acromion. The remainder of the bursa was debrided.? The rotator cuff was torn in the supraspinatus interval. The tear was about nickel sized. This was debrided and repaired to bone using #2 Ethibond suture.? At this point the deltoid was repaired to itself, the acromion and the trapezius with #2 Ethibond. The skin w as closed with 2-0 Vicryl and elieser.? A sterile dressing was applied. The patient tolerated the procedure well and left the operating room satisfactory condition. Estimated Blood Loss 50 Drains No Packing No Pathology None sent Complications No immediate complications Condition Stable Disposition PACU [facility] Billing Surgery - Charge Forward: Surgery Billing ([id number] RTC Repair [id number] DCE)
[2025-02-26] MEDS: fentaNYL CITRATE INJ (*CRX) 100 MCG/2 ML VIAL 25 MCG IV PUSH ×4 (11:38→11:46)
[2025-02-26] MEDS: HYDROmorphone HCL INJ (*CRX) 1 MG/ML SYR 0.5 MG IV PUSH ×2 (11:51→11:57)
--- NOTE | 2025-02-26 12:14 | WPDANESPNB ---
Anes - Peripheral Nerve Block Date/Time: 02/26/25 12:14 I have discussed with the patient/family/POA the placement of a peripheral nerve block for post-operative pain management, including associated risks, benefits, complications, and side effects. Alternative methods of post-operative analgesia were detailed. Questions were solicited and answers provided to the satisfaction of the patient/family/POA. Time-Out: A pre-procedural Time-Out was completed immediately before starting the procedure and confirmed: Patient Identification, Site, Procedure, Patient Position and the Availability of Requisite Equipment. Clinical Indications: Acute post-operative pain management requested by the operative surgeon. Nerve Block Insertion Note Anes-nerve block: interscalene right Patient position: supine Skin prep: chlorhexidine Needle: 22 gauge, stimulating, insulated echogenic needle. Needle length: 50 mm Technique: ultrasound Injectate: bupivacaine 0.5% with epi 5 mcg/ml (20cc no epi) Observations: tolerated well Complications: none Procedure start time:: 1205 Procedure end time:: 1212
== END 2025-02-26 13:55 | disposition home or self-care (01) ==
PROVIDERS: PCP Family Medicine; Visit Provider Orthopaedic Surgery
PROC: (CPT 29805; principal; 2025-02-26 09:30)
DX: M75.121 Complete rotator cuff tear or rupture of right shoulder, not specified as traumatic (principal); M19.019 Primary osteoarthritis, unspecified shoulder; M25.411 Effusion, right shoulder; M75.31 Calcific tendinitis of right shoulder; G89.18 Other acute postprocedural pain; G47.10 Hypersomnia, unspecified; M65.4 Radial styloid tenosynovitis [de Quervain]; M05.79 Rheumatoid arthritis with rheumatoid factor of multiple sites without organ or systems involvement; F32.A Depression, unspecified; G89.29 Other chronic pain; M54.41 Lumbago with sciatica, right side; M25.511 Pain in right shoulder; F17.290 Nicotine dependence, other tobacco product, uncomplicated; Z79.891 Long term (current) use of opiate analgesic; Z98.1 Arthrodesis status
CPT/HCPCS: 64415; 23412; 23120; A9270; J0171; J0690; J1100; J1171; J1885; J2003; J2004; J2250; J2371; J2405; J2704; J3010; J7120

== ENCOUNTER 2025-07-18 10:20 | Outpatient (CLI) | payer OTHER, SELFPAY ==
--- NOTE | ~2025-07-18 | XR_ITS ---
EXAMINATION: XR chest 2V, 07/18/2025 10:29 HOLISTIC NUTRITIONIST HISTORY: Rheumatoid arthritis with rheumatoid factor of multiple site COMPARISON: No comparisons available. Technique: 2 views obtained. Findings: The lungs are clear, no effusion. No pneumothorax. Heart is normal size. Mediastinal and hilar contours are within normal limits. Bony thorax no acute abnormality. Impression: No acute cardiopulmonary abnormality. Reviewed, dictated and finalized at location P. STIC NUTRITIONIST Impression: No acute cardiopulmonary abnormality.
== END 2025-07-18 10:21 | disposition home or self-care (01) ==
LOC: MICIMG 10:21
PROVIDERS: PCP Family Medicine; Visit Provider Internal Medicine Rheumatology
DX: M05.79 Rheumatoid arthritis with rheumatoid factor of multiple sites without organ or systems involvement (principal)
CPT/HCPCS: 71046

== ENCOUNTER 2025-07-31 06:03 | Day surgery (SDC) | payer OTHER, SELFPAY ==
[2025-07-23 13:38] VITALS: BMI 26.6
--- NOTE | ~2025-07-31 | XR_ITS ---
EXAM/PROCEDURE: XR surgery orthopedic HISTORY: HARDWARE REMOVAL, RIGHT FOOT COMPARISON: None available. TECHNIQUE: Fluoroscopic spot images for orthopedic service. Fluoroscopy time: 0.05 minutes Total DAP: 1.0462 cGray per square number IMPRESSION: Fluoroscopic guided imaging. No radiologist present. See also procedure/operative notes for complete evaluation. Reviewed, dictated and finalized at location A. [facility] IMPRESSION: Fluoroscopic guided imaging. No radiologist present. See also proce dure/operative notes for complete evaluation.
[2025-07-31 06:33] VITALS: BP 149/87; PULSE 75; RESP 16; TEMP 36.7; O2SAT 100
[2025-07-31] MEDS: LACTATED RINGERS 1,000 ML 30 ML IV CONT (06:53)
--- NOTE | 2025-07-31 07:19 | WPDANESEPPF ---
Anes - Initial Pre Proc Eval Procedure: Operation Date: 07/31/25 07:30 Proposed Procedures p Removal Deep Orthopedic Hardware Right Foot - Bebeto Cash Jr., DPM Date/Time: 07/31/25 07:19 Surgeon: Bebeto Cash Jr., DPM Pre Op Diagnosis: Painful Deed Orthopedic hardware Patient Data Age: 55 Gender: F Height: 1.6 m Weight: 68.2 kg Last Vital Signs Temp 98.1 F 07/31/25 06:33 Pulse 75 07/31/25 06:33 Resp 16 07/31/25 06:33 BP 149/87 H 07/31/25 06:33 Pulse Ox 100 07/31/25 06:33 O2 Del Method Room Air 07/31/25 06:33 Allergies Allergy/AdvReac Type Severity Reaction Status Date / Time diclofenac AdvReac Intermediate Nausea Verified 07/31/25 06:21 Home Medications ?Medication ?Instructions ?Recorded ?Confirmed ?Type etanercept 50 mg/mL (1 mL) 50 mg subcut WEEKLY 04/17/20 07/31/25 History subcutaneous syringe (Enbrel) folic acid 1 mg tablet 2 mg PO DAILY 04/17/20 07/31/25 History lamotrigine 100 mg tablet 100 mg PO BID 04/17/20 07/31/25 History leflunomide 10 mg tablet 10 mg PO DAILY 04/17/20 07/31/25 History duloxetine 60 mg capsule,delayed 60 mg PO DAILY 12/18/20 07/31/25 History release valacyclovir 1 gram tablet See Rx Instructions PO .COMPLEX 06/12/24 07/31/25 Rx (Valtrex) PRN cold sores #30 tabs bupropion HCl 150 mg 24 hr tablet, 150 mg PO DAILY 02/19/25 07/31/25 History extended release Patient hx anesthesia problems: none Family hx anesthesia problems: none Results Review: All pre-operative results and documents have been reviewed as part of the pre-operative evaluation. [facility] Past Medical History Medical History (Reviewed 05/15/25 @ 07:09 by Rolanda Mirza [facility] [address]) Hypersomnia Chronic low back pain with right-sided sciatica COVID (07/14/22) BMI 24.0-24.9, adult Chronic pain in right shoulder 10/18/2024 X-ray of the right shoulder reveals moderate osteoarthritis. Herpes zoster De Quervain's disease (tenosynovitis) (~08/2023) left wrist. X-ray of the left hand on 10/30/2023 reveals no bony defect of the distal radius or ulna. Breast cancer screening by mammogram Colon cancer screening Cologuard screening was negative on 11/27/2023 with recheck in 3 years. Low back pain Mass of right foot Right foot pain Pharyngitis Fever blister (~09/14/22) BMI 28.0-28.9,adult Overweight (BMI 25.0-29.9) Bullous myringitis of right ear Fracture of tarsal bone of right foot medial cuneiform Fracture of metatarsal of right foot, closed first, third and fourth bases - nondisplaced Rheumatoid arthritis of multiple sites without organ or system involvement with positive rheumatoid factor CRP 1, ESR 22, WBC 6.4, creatinine 0.74 on 01/19/2025. Nicotine vapor product user Migraine headache Chronic depression Sore throat Surgical History Surgical History History of neck surgery (~2018) Social History Social History Smoking packs per day: 0.5 Smoking cigarettes per day: 10.0 Years smoked: 35 Smoking pack-years: 17.50 Smoking status: Former smoker Tobacco type: e-cigarettes/vaping Second hand tobacco smoke exposure: No Smoking end date: 08/23/20 Additional smoking assessment comments: still vapes daily with nicotine Alcohol intake: former Alcohol use details: socially Substance use: never Substance use type: does not use Current Housing: Decline to Answer Concerned About Future Housing: Decline to Answer Difficulty Paying Gas/Electric Bills: Decline to Answer Difficulty Paying for Meds: Decline to Answer Currently Unemployed: Decline to Answer Education: Decline to Answer Difficulty w/ Childcare or Family Care: Decline to Answer Living arrangements: alone Occupation/Education: occupation Additional occupation/education comments: [employer], teacher Gender identity (if verbalized by the patient): Female Spiritual care concerns: No Anes - Eval Final PreProcedure Day of Procedure 07/31/25 07:19 Heart: regular rate and rhythm Lungs: clear to auscultation Airway: Mallampati scale class II Neurological: alert and oriented Last oral intake: >/= 8 hours ASA classification: II Anesthetic plan: proceed Anesthesia type and monitoring: general Results Review: All pre-operative results and documents have been reviewed as part of the pre-operative evaluation. Informed Consent: The patient's anesthetic plan and its attendant risks and benefits were discussed with the patient/family/POA. Questions were solicited and answers provided to the satisfaction of the patient/family/POA.
--- NOTE | 2025-07-31 07:21 | WPDHPUPDATE1 ---
History and Physical Update Update Date/Time: 07/31/25 07:21 History and Physical has been reviewed, including an updated exam of the patient. There are NO changes in the patient's condition. Risks, benefits, and alternatives have been discussed and questions answered. Patient agrees to proceed with procedure.
[2025-07-31] MEDS: ceFAZolin SODIUM 2 GM/20 ML SW SYRINGE IV PUSH (07:30)
[2025-07-31] MEDS: BUPivacaine HCL 0.5% 10 ML AMP INFILTRATE (08:03)
[2025-07-31] MEDS: LIDOCAINE 2% PF LOCAL INJ 5 ML VIAL 10 ML INFILTRATE (08:03)
[2025-07-31 08:26] VITALS: BP 126/84; PULSE 74; RESP 12; O2SAT 96
[2025-07-31] MEDS: fentaNYL CITRATE INJ (*CRX) 100 MCG/2 ML VIAL 25 MCG IV PUSH ×6 (08:41→09:15)
--- NOTE | 2025-07-31 08:44 | PM.OP ---
Procedure Note - Brief Procedure Note - Brief Date of procedure: 07/31/25 Painful Deep Orthopedic hardware right foot Procedure performed: Removal of deep orthopedic hardware right foot Surgeon: Bebeto Cash Jr., SWETAM Implants: Arthrex Trim it Pin 2.0mm
[2025-07-31 08:55] VITALS: BP 149/100; PULSE 78; RESP 14; O2SAT 100
[2025-07-31] MEDS: oxyCODONE HCL (*CRX) 5 MG TAB IR PO (08:58)
--- NOTE | 2025-08-10 16:38 | W.PM.PROC2 ---
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 A pneumatic ankle tourniquet was placed about the patient's right ankle. Following IV sedation and a proximal local anesthetic block with 20ccs of a one to one mix of 2% Lidocaine plain and 0.5% Marcaine plain. Next, the foot and distal ankle was scrubbed in the usual aseptic manner. An Esmarch bandage is not used to exsanguinate the patient's right foot and ankle and the pneumatic ankle tourniquet was inflated to 250mmHg. Attention was directed to the dorsal aspect of the right midfoot overlying the 1st metatarsal cuneiform joint where a 3cm incision was made starting along the medial cuneiform joint and extending to the base of the first metatarsal. The incision was made medial to the extensor hallucis longus tendon. All bleeders were ligated and cauterized as necessary. I used a freer periosteal elevator to free the capsular and periosteal structures from the prominent osteophyte exposing a large Arthrex Staple which was pryed off with an osteotomy. Next, I utilized the same osteotome and mallet to resect the large osteophyte I smoothed out the surface with a power maday. Next, I used a curette to debride the non union fibrous tissue and fenestrated the base of the first metatarsal and anterior medial cuneiform with a 2.0mm drill bit. I stabilized the joint with a K wire and used the drill guide and placed a 2.0mm Arthrex absorbable trim it pin across the joint. Excellent resection of the joint was performed and adequate stabilization of the joint was maintained after the K wire was removed. I flushed the wound with sterile saline. Next I repaired the capsule with 3-0 Vicryl with a simple interrupted suture technique. Next, I used 4.0 Vicryl to reapproximate the subcutaneous layer and 4.0 Monocryl in running subcuticular fashion technique to close the skin. I dressed the incision with 1/4 inch steri strips, Adaptic, 4x4 Gauze, 4 inch Kerlix and Coban. I deflated the ankle tourniquet and there was an immediate capillary refill noted to all digits of the foot. No bleeding was noticed through the dressing. I applied a dry sterile dressing to the foot and a CAM boot will be applied. The patient did very well with the procedure and the anesthesia. The patient was transferred to the recovery room with vital signs stable and vascular status intact to all toes of the foot. Following a period of postoperative monitoring, the patient will be discharged home on the following written and oral postoperative instructions: 1. The patient should keep the dressing clean, dry, and intact. Use a cast protector bag with showers. 2. The patient will be protected weight bearing with a CAM walker boot. 3. Patient should ice and elevate the right foot when at rest. 4. The patient is to contact Dr. Cash for all postop care and if any problems arise. 5. Prescriptions were written for Percocet 5/325 dispensed 40 to be taken 1 p.o. q.4-6 hours as needed for severe pain. Take 325mg of Aspiring once daily for two weeks to prevent DVT's.. Implants One Arthrex 2.0mm Trim it Pin Estimated Blood Loss 1 Drains No Packing No Pathology None sent Complications No immediate complications Condition Stable Disposition Same day
== END 2025-07-31 09:31 | disposition home or self-care (01) ==
PROVIDERS: PCP Family Medicine; Visit Provider Podiatrist Foot & Ankle Surgery
PROC: (CPT 28740; principal; 2025-07-31 07:30)
DX: T84.84XA Pain due to internal orthopedic prosthetic devices, implants and grafts, initial encounter (principal); M79.671 Pain in right foot; M96.0 Pseudarthrosis after fusion or arthrodesis; Y83.1 Surgical operation with implant of artificial internal device as the cause of abnormal reaction of the patient, or of later complication, without mention of misadventure at the time of the procedure
CPT/HCPCS: 28740; 99199; C1713

== ENCOUNTER 2025-08-06 09:42 | Outpatient (CLI) | payer OTHER, SELFPAY ==
--- NOTE | ~2025-08-06 | DEXA_ITS ---
Bone Density Report Name: JOSH BUSBY Age: 55 Sex: Female Ethnicity: White Date of : 1970 Indication: postmenopausal; screening for osteoporosis; height loss; prior fracture; rheumatoid arthritis; Referring Provider: KANDICEWILMAN Study: Bone densitometry was performed. Exam Date: August 06, 2025 Accession number: [id number] Bone Density: Region BMD T-score Z-score Classification AP Spine(L1-L4) 1.156 1.0 2.1 Normal Femoral Neck (Left) 0.646 -1.8 -0.8 Osteopenia Total Hip (Left) 0.752 -1.6 -0.9 Osteopenia Femoral Neck (Right) 0.626 -2.0 -1.0 Osteopenia Total Hip (Right) 0.745 -1.6 -0.9 Osteopenia Total Hip Mean 0.748 -1.6 -0.9 Osteopenia World Health Organization criteria for BMD impression classify patients as: Normal (T-score at or above -1.0), Osteopenia (T-score between -1.0 and -2.5), or Osteoporosis (T-score at or below -2.5). 10-year Fracture Risk(1): Major Osteoporotic Fracture 18% Hip Fracture 4.1% Reported Risk Factors: [place] (), Neck BMD=0.626, BMI=25.7, previous fracture, smoking, rheumatoid arthritis (1) FRAX(R) Version 3.08. Fracture probability calculated for an untreated patient. Fracture probability may be lower if the patient has received treatment. Clinical Information Provided by Patient: Has had a low trauma fracture Smokes Has rheumatoid arthritis Has used the following medications: Vitamin D Patient maximum height was 64.0 Menopause Age: 45 No regular weight bearing exercise Drinks caffeinated beverages Onset of menses at age 14 Number of children 1 Impression: The patient has low bone mass, based on the Right Femoral Neck T-score. The patient has an estimated ten-year risk of hip fracture of 4.1% and an estimated ten-year risk of major fracture of 18%, based on the WHO FRAX algorithm. The patient has risk factors, including: smoking, previous fracture. Discussion: BONE DENSITY IS LOW AT ONE OR MORE SKELETAL SITES. THE PATIENT'S BMD AND CLINICAL RISK FACTORS CONTRIBUTE TO THIS PATIENT'S INCREASED RISK OF FRACTURE. This patient's lowest T-score is low at one or more skeletal sites. It meets the World Health Organization's (WHO) criteria for ?low bone mass? (T-score between -1.0 and -2.5). The patient's 10-year risk of hip fracture as calculated by FRAX exceeds the threshold where pharmacological therapy is recommended by the National Osteoporosis Foundation (NOF). However, all treatment decisions require clinical judgment and consideration of individual patient factors, including patient preferences, comorbidities, previous drug use, risk factors not captured in the FRAX model (e.g., frailty, falls, vitamin D deficiency, increased bone turnover, interval significant decline in bone density) and possible under or overestimation of fracture risk by FRAX. The patient should follow a healthful lifestyle (good nutrition with adequate calcium and vitamin D, and appropriate weight-bearing exercise). Follow-Up: Consider a repeat BMD and Vertebral Fracture Assessment (VFA) exam in 2 years or sooner if medically necessary, to reassess this patient's status. Reported by: HUSSEIN on 08/06/2025 10:25:00 AM. Reviewed, dictated and finalized at location A.
== END 2025-08-06 09:43 | disposition home or self-care (01) ==
LOC: ANHFOHIMG 09:44
PROVIDERS: PCP Family Medicine; Visit Provider Internal Medicine Rheumatology
DX: M85.89 Other specified disorders of bone density and structure, multiple sites (principal); Z78.0 Asymptomatic menopausal state; Z51.81 Encounter for therapeutic drug level monitoring; E55.9 Vitamin D deficiency, unspecified; Z79.899 Other long term (current) drug therapy
CPT/HCPCS: 77080